=== PATIENT | female | born 1925 | race Caucasian/White ===

== ENCOUNTER 2016-06-17 14:06 | Emergency (ER) | payer OTHER ==
[~2016-06-17] VITALS: Ht 144.8 cm; Wt 52.0 kg
[~2016-06-17 14:06] MED LIST: DILT240C80 PO; ISOS30TA5 PO; LABE300T PO
[2016-06-17 14:30] VITALS: Ht 144.8 cm; Wt 52.0 kg
[2016-06-17] MEDS ORDERED: IBUPROFEN 200 MG TAB PO ONE (16:30)
[2016-06-17] MEDS ORDERED: AZIT250T94 PO (16:59)
--- NOTE | 2016-06-17 16:59 | ERD ---
ER Documentation Chief Complaint Date/Time DATE: 06/17/16 TIME: 16:56 Chief Complaint cough & sinclair x 1 week, no fever at home HPI This is a 89-year-old female presents to the emergency room for evaluation of a cough, and nasal congestion. This patient states that she has been taking Phenergan with dextromethorphan at home with a mild relief of her cough. She states that she is coughing up yellow phlegm. Daughter is giving history and denies any fevers at home. The patient was brought in for further evaluation. ROS All systems reviewed and are negative except as per history of present illness. Medications Home Meds Reported Medications Diltiazem Hcl* (Tiazac) 240 Mg Capsule.sa, 240 MG PO BID, CAP 08/12/14 Labetalol Hcl* (Labetalol Hcl*) 300 Mg Tablet, 300 MG PO DAILY, TAB 08/12/14 Isosorbide Mononitrate* (Isosorbide Mononitrate*) 30 Mg Tab.er.24h, 30 MG PO DAILY, TAB 08/12/14 Allergies Allergies: Coded Allergies: No Known Allergy (Unverified , 08/12/14) PMhx/Soc History of Surgery: Yes (CHOLECYSTECTOMY) Anesthesia Reaction: No Hx Neurological Disorder: No Hx Respiratory Disorders: No Hx Cardiac Disorders: Yes (HTN) Hx Psychiatric Problems: No Hx Miscellaneous Medical Probl: No Hx Alcohol Use: No Hx Substance Use: No Hx Tobacco Use: No Smoking Status: Never smoker Physical Exam Vitals Vital Signs Date Time Temp Pulse Resp B/P Pulse Ox O2 Delivery O2 Flow Rate FiO2 06/17/16 14:30 100.0 95 20 196/66 95 Physical Exam Const: No acute distress Eyes: Normal Conjunctiva ENT: Normal External Ears, Nose and Mouth. Neck: Full range of motion..~ No meningismus. Resp: Clear to auscultation bilaterally Cardio: Regular rate and rhythm, no murmurs Abd: Soft, non tender, non distended. Normal bowel sounds Skin: No petechiae or rashes Back: No midline or flank tenderness Ext: No cyanosis, or edema Neur: Awake and alert Psych: Normal Mood and Affect Results 24 hrs Current Medications Medications (Trade) Dose Ordered Sig/Joselito Route PRN Reason Start Time Stop Time Status Last Admin Dose Admin Ibuprofen (Motrin) 400 mg ONCE ONCE PO 06/17/16 16:30 1/21/17 16:31 DC 06/17/16 16:29 Azithromycin (Zithromax) 500 mg ONCE ONCE PO 06/17/16 17:00 06/17/16 17:01 Procedures/MDM Chest X-ray 1V Interpreted by me: Soft Tissue: Pulmonary vascular congestion with possible early right middle lobe infiltrate Bones: No acute abnormalities Mediastinum/Cardiac Silhouette/Lungs: [No acute abnormalities] This 89-year-old female presents to the emergency room for evaluation of a cough , and congestion. This patient had temperature 100F in the emergency room, x- ray was obtained which does show possible right early middle lobe infiltrate. The patient was given 500 mg of azithromycin p.o. She is not hypoxic, she sitting in bed comfortably, no acute distress. She will be discharged home with a prescription for azithromycin, and Robitussin-DM. I advised the patient' s daughter to give the patient Robitussin-DM at night to help her sleep however she needs to cough to help remove mucous plugging from her respiratory system. Patient was advised to return immediately to the emergency room if the patient were to develop fever, worsening cough or if the patient was not improving on antibiotics in both the patient and the patient's daughter verbalized understanding. Departure Diagnosis: Primary Impression: Cough Condition: LISANDRO Powell DO Jun 17, 2016 16:59
[2016-06-17] MEDS ORDERED: AZITHROMYCIN 250 MG TAB PO ONE (17:00)
[2016-06-17] MEDS ORDERED: UDROBDM PO (17:01)
--- NOTE | 2016-06-17 17:39 | RADRPT ---
PROCEDURE: XR Chest. CLINICAL INDICATION: Cough and fever. TECHNIQUE: Single frontal chest x-ray. COMPARISON: None available. FINDINGS: There are atherosclerotic changes of the aorta. The cardiomediastinal silhouette is enlarged. The lungs are clear without focal consolidation, effusion, or pneumothorax. There are no acute osseous abnormalities. IMPRESSION: 1. Cardiomegaly. No focal consolidation. 2. Vascular calcifications consistent with atherosclerosis. RPTAT: GG .Leonardo Hall MD, MD Date Time Electronically viewed and signed by .Leonardo Hall MD, on 06/17/2016 17:39 .P/
== END 2016-06-17 17:15 | disposition home or self-care (01) ==
LOC: E/R 14:06
DX: R05 Cough (principal); I10 Essential (primary) hypertension; R40.2142 Coma scale, eyes open, spontaneous, at arrival to emergency department; R40.2252 Coma scale, best verbal response, oriented, at arrival to emergency department; R40.2362 Coma scale, best motor response, obeys commands, at arrival to emergency department
CPT/HCPCS: 71010; Z7502; Z7610

== ENCOUNTER 2016-09-21 17:31 | Inpatient (IN) | payer OTHER ==
[~2016-09-21] VITALS: Ht 149.9 cm; Wt 56.2 kg
[~2016-09-21 17:31] MED LIST changes: +AZIT250T94 PO; +UDROBDM PO
[2016-09-21 21:00] VITALS: BP 153/85; PULSE 56; RESP 18; Ht 149.9 cm; Wt 56.2 kg
[2016-09-21 21:17] VITALS: PULSE 59
[2016-09-21] MEDS ORDERED: LEVO50TA74 PO (22:07)
[2016-09-21] MEDS ORDERED: PANT40TA4 PO (22:07)
[2016-09-21] MEDS ORDERED: ACET-141 PO (22:07)
[2016-09-21] MEDS ORDERED: ASPI81TA3 PO (22:07)
[2016-09-21] MEDS ORDERED: ALBUTEROL/IPRATROPIUM (NEB) 3 ML AMP HHN PRN (23:30)
[2016-09-21] MEDS ORDERED: NACL 0.9% 3 ML SYG IV SCH (23:30)
[2016-09-21] MEDS ORDERED: ONDANSETRON 4 MG INJ IV PRN (23:30)
[2016-09-21] MEDS ORDERED: hydrALAzine 20 MG INJ IV PRN (23:30)
[2016-09-21] MEDS ORDERED: NITROGLYCERIN (SL) 0.4 MG TAB SL PRN (23:30)
[2016-09-21] MEDS ORDERED: LORAZEPAM 2 MG INJ IV PRN (23:30)
[2016-09-21 23:39] VITALS: BP 153/66; RESP 18
[2016-09-21 23:40] VITALS: BP 150/68; RESP 18
[2016-09-22] VITALS (13 sets, daily range): BP systolic 116–196; BP diastolic 57–80; PULSE 55–155; RESP 18–19
[2016-09-22] MEDS: morphine 2 MG INJ IV PRN (00:49)
[2016-09-22 01:08] LABS: ADD SCAN DIFF NO
[2016-09-22 01:11] LABS: BASOPHIL # 0.1 10^3/ul (0.0-0.1); BASOPHILS % 0.7 % (0.0-2.0); EOSINOPHILS # 0.5 10^3/ul (0.0-0.5); EOSINOPHILS % 4.9 % (0.0-7.0); HEMATOCRIT 33.7 % (37.0-47.0); HEMOGLOBIN 10.8 g/dl (12.0-16.0); LYMPHOCYTES # 1.5 10^3/ul (0.8-2.9); MEAN CORPUSCULAR HEMOGLOBIN 27.2 pg (29.0-33.0); MEAN CORPUSCULAR VOLUME 84.9 fl (82.0-101.0); MEAN PLATELET VOLUME 9.6 fl (7.4-10.4); MONOCYTE # 0.8 10^3/ul (0.3-0.9); MONOCYTES % 7.7 % (0.0-11.0); NEUTROPHIL # 7.4 10^3/ul (1.6-7.5); NEUTROPHILS % 71.3 % (39.0-77.0); PLATELET COUNT 345 10^3/UL (140-415); RED BLOOD COUNT 3.97 10^6/ul (4.20-5.40); RED CELL DISTRIBUTION WIDTH 14.8 % (11.5-14.5); WHITE BLOOD COUNT 10.3 10^3/ul (4.8-10.8)
[2016-09-22 01:34] LABS: ALBUMIN 3.3 g/dl (3.3-4.9); ALBUMIN/GLOBULIN RATIO 1.13; CALCIUM 8.8 mg/dl (8.4-10.2); CHOL/HDL RATIO 3.6 RATIO; CREATININE 1.45 mg/dl (0.44-1.00); MAGNESIUM 2.2 mg/dl (1.7-2.5); POTASSIUM 4.6 mmol/L (3.5-5.1); TOTAL PROTEIN 6.2 g/dl (6.1-8.1)
[2016-09-22 02:15] LABS: THYROID STIMULATING HORMONE 2.63 MIU/L (0.465-4.680)
[2016-09-22] MEDS: PANTOPRAZOLE (EC) 40 MG TAB PO SCH (05:09)
[2016-09-22] MEDS: LEVOTHYROXINE 50 MCG TAB PO SCH (06:45)
[2016-09-22] MEDS: ACETAMINOPHEN 325 MG TAB PO PRN (07:29)
[2016-09-22] MEDS: ASPIRIN 81 MG TAB PO SCH (08:14)
[2016-09-22] MEDS: ISOSORBIDE MONONITRATE(SR)30 MG TAB PO SCH (08:15)
[2016-09-22] MEDS: DILTIAZEM (CD) 240 MG CAP PO SCH ×2 (08:15→21:43)
--- NOTE | 2016-09-22 09:06 | HP ---
Date/Time of Note Date/Time of Note DATE: 09/22/16 TIME: 08:58 Assessment/Plan VTE Prophylaxis VTE Prophylaxis Intervention: SCD's Lines/Catheters IV Catheter Type (from Nrs): Peripheral IV Urinary Cath still in place: No Assessment/Plan Assessment/Plan IMPRESSION 1. Headache, likely 2/2 severely elevated BP 2. Hypertensive Urgency: per vitals from outside hospital: BP better controlled here 3. Hx of Hypothyroidism 4. CKD PLAN Her headache is likely from severely elevated BP. Will obtain Head CT. Pain meds as needed Resume home meds with adjustment as needed Avoid nephrotoxins. As compared to labs from 2014, kidney function is slightly better HPI/ROS Admit Date/Time Admit Date/Time Sep 21, 2016 at 20:29 Hx of Present Illness This is an 89 yo female with hx of HTN, hypothyroidism and CKD who initially presented to outside hospital c/o headache. She was transferred to [facility] because of insurance reasons. Pain is localized in occipital area. denied neck stiffness , fever, blurry vision, N/V, chest pain or SOB. Blood pressure at outside hospital was > 200/100. I spoke to her through a nurse satellite dish technician and pt said her BP at home is usually in 200 range. She said she takes "2 medications". PMH/Family/Social Past Medical History Medical History: hypertension, hyperthyroid Social History Alcohol Use: none Smoking Status: Never smoker Drug Use: none Exam/Review of Systems Vital Signs Vitals Vital Signs Date Time Temp Pulse Resp B/P Pulse Ox O2 Delivery O2 Flow Rate FiO2 09/22/16 08:41 57 09/22/16 08:16 145/67 09/22/16 07:18 98.0 18 95 09/21/16 21:00 Room Air Intake and Output 09/21/16 09/21/16 09/22/16 15:00 23:00 07:00 Intake Total 550 ml Balance 550 ml Exam Constitutional: alert, well developed Head: atraumatic, normocephalic, other (tenderness in occiptal area. no palpable mass or deformity) Eyes: EOMI, PERRL Respiratory: clear to auscultation, normal air movement Cardiovascular: nl pulses, regular rate and rhythm Gastrointestinal: non-tender, soft Extremities: normal pulses Labs Result Diagram: 09/22/16 0043 09/22/16 0043 Medications Medications Current Medications Lorazepam (Ativan) 0.5 mg Q6H PRN IV ANXIETY; Start 09/21/16 at 23:30 Ondansetron HCl (Zofran Inj) 4 mg Q6H PRN IV NAUSEA AND/OR VOMITING; Start at 23:30 Aspirin (Aspirin) 81 mg DAILY PO Last administered on 09/22/16 08:14; Admin Dose 81 MG; Start 09/22/16 at 09:00 Nitroglycerin (Nitroglycerin (Sl Tab) 0.4 Mg) 1 tab Q5M PRN SL CHEST PAIN; Start 09/21/16 at 23:30 Acetaminophen (Tylenol Tab) 650 mg Q6H PRN PO PAIN LEVEL 1-3 OR FEVER Last administered on 09/22/16 07:29; Admin Dose 650 MG; Start 09/21/16 at 23:30 Morphine Sulfate (morphine) 2 mg Q4H PRN IV PAIN LEVEL 7-10 Last administered on 09/22/16 00:49; Admin Dose 2 MG; Start 09/21/16 at 23:30 Hydralazine HCl (Apresoline) 10 mg Q4H PRN IV SBP > 160 Last administered on 07:29; Admin Dose 10 MG; Start 09/21/16 at 23:30 Diltiazem HCl (Cardizem Cd) 240 mg BID PO Last administered on 09/22/16 08:15 ; Admin Dose 240 MG; Start 09/22/16 at 09:00 Isosorbide Mononitrate (Imdur) 30 mg DAILY PO Last administered on 09/22/16 08 :15; Admin Dose 30 MG; Start 09/22/16 at 09:00 Pantoprazole (Protonix Tab) 40 mg DAILY@06 PO Last administered on 09/22/16 05 :09; Admin Dose 40 MG; Start 09/22/16 at 06:00 JYOTSNA MARY MD Sep 22, 2016 09:06
[2016-09-22] MEDS: LISINOPRIL 10 MG TAB PO SCH (10:23)
[2016-09-22] MEDS ORDERED: KETOROLAC 15 MG INJ IV STA (11:08)
--- NOTE | 2016-09-22 11:22 | PN ---
Date/Time of Note Date/Time of Note DATE: 09/22/16 TIME: 10:55 Assessment/Plan VTE Prophylaxis VTE Prophylaxis Intervention: ambulation, other (awaiting CT head read prior to anticoagulation) Lines/Catheters IV Catheter Type (from Nrs): Peripheral IV Urinary Cath still in place: No Assessment/Plan Chief Complaint/Hosp Course 1. Headache, likely 2/2 severely elevated BP - Her headache is likely from severely elevated BP. Will obtain CT head and neck without contrast. Tylenol and morphine did not help with pain. Will give her one time dose of Toradol 15mg IV right now. Further pain management after CT results. 2. Hypertensive Urgency: per vitals from outside hospital: BP better controlled here. On cardizem from home will continue this med as she has been on it for some time according to her, will add Lisinopril 10mg, Hydralazine 25mg PO prn. Will titrate JR as needed. 3. Hx of Hypothyroidism 4. CKD - no renal bruits appreciated. Added JR. 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 It has been there for a few days. Not releaved with tylenol. Exam/Review of Systems Vital Signs Vitals Vital Signs Date Time Temp Pulse Resp B/P Pulse Ox O2 Delivery O2 Flow Rate FiO2 09/22/16 08:41 57 09/22/16 08:16 145/67 09/22/16 07:18 98.0 18 95 09/21/16 21:00 Room Air Intake and Output 09/21/16 09/21/16 09/22/16 15:00 23:00 07:00 Intake Total 550 ml Balance 550 ml Exam Constitutional: alert, well developed Head: atraumatic, normocephalic, other (tenderness to palpation in occiptal area and right posteror neck no palpable mass or deformity) Eyes: EOMI, PERRL Respiratory: clear to auscultation, normal air movement Cardiovascular: nl pulses, regular rate and rhythm Gastrointestinal: non-tender, soft Extremities: normal pulses : No renal bruits appreciated on auscultation Results Result Diagram: 09/22/16 0043 09/22/16 0043 Results 24 hrs Laboratory Tests Test 09/22/16 00:43 White Blood Count 10.3 Red Blood Count 3.97 L Hemoglobin 10.8 L Hematocrit 33.7 L Mean Corpuscular Volume 84.9 Mean Corpuscular Hemoglobin 27.2 L Mean Corpuscular Hemoglobin Concent 32.0 Red Cell Distribution Width 14.8 H Platelet Count 345 Mean Platelet Volume 9.6 Neutrophils % 71.3 Lymphocytes % 15.0 Monocytes % 7.7 Eosinophils % 4.9 Basophils % 0.7 Nucleated Red Blood Cells % 0.0 Neutrophils # 7.4 Lymphocytes # 1.5 Monocytes # 0.8 Eosinophils # 0.5 Basophils # 0.1 Nucleated Red Blood Cells # 0.0 Sodium Level 135 Potassium Level 4.6 Chloride Level 106 Carbon Dioxide Level 25 Anion Gap 9 Blood Urea Nitrogen 38 H Creatinine 1.45 H Glucose Level 103 Calcium Level 8.8 Magnesium Level 2.2 Total Bilirubin 0.0 L Direct Bilirubin 0.00 Indirect Bilirubin 0.0 Aspartate Amino Transf (AST/SGOT) 20 Alanine Aminotransferase (ALT/SGPT) 21 Alkaline Phosphatase 104 Total Protein 6.2 Albumin 3.3 Globulin 2.90 Albumin/Globulin Ratio 1.13 Triglycerides Level 132 Cholesterol Level 126 LDL Cholesterol, Calculated 65 HDL Cholesterol 35 Cholesterol/HDL Ratio 3.6 Thyroid Stimulating Hormone (TSH) 2.630 Medications Medications Current Medications Lorazepam (Ativan) 0.5 mg Q6H PRN IV ANXIETY; Start 09/21/16 at 23:30 Ondansetron HCl (Zofran Inj) 4 mg Q6H PRN IV NAUSEA AND/OR VOMITING; Start at 23:30 Aspirin (Aspirin) 81 mg DAILY PO Last administered on 09/22/16 08:14; Admin Dose 81 MG; Start 09/22/16 at 09:00 Nitroglycerin (Nitroglycerin (Sl Tab) 0.4 Mg) 1 tab Q5M PRN SL CHEST PAIN; Start 09/21/16 at 23:30 Acetaminophen (Tylenol Tab) 650 mg Q6H PRN PO PAIN LEVEL 1-3 OR FEVER Last administered on 09/22/16 07:29; Admin Dose 650 MG; Start 09/21/16 at 23:30 Morphine Sulfate (morphine) 2 mg Q4H PRN IV PAIN LEVEL 7-10 Last administered on 09/22/16 00:49; Admin Dose 2 MG; Start 09/21/16 at 23:30 Diltiazem HCl (Cardizem Cd) 240 mg BID PO Last administered on 09/22/16 08:15 ; Admin Dose 240 MG; Start 09/22/16 at 09:00 Isosorbide Mononitrate (Imdur) 30 mg DAILY PO Last administered on 09/22/16 08 :15; Admin Dose 30 MG; Start 09/22/16 at 09:00 Pantoprazole (Protonix Tab) 40 mg DAILY@06 PO Last administered on 09/22/16 05 :09; Admin Dose 40 MG; Start 09/22/16 at 06:00 Lisinopril (Zestril) 10 mg DAILY PO Last administered on 09/22/16 10:23; Admin Dose 10 MG; Start 09/22/16 at 10:00 Hydralazine HCl (Apresoline) 25 mg Q6H PRN PO for bp above 160/100; Start 09/22 at 10:30 ROHITH ABURTO Sep 22, 2016 11:05
--- NOTE | 2016-09-22 16:49 | RADRPT ---
PROCEDURE: CT Head without contrast. CLINICAL INDICATION: Headaches. Hypertensive urgency TECHNIQUE: The study was performed utilizing a GE 64-slice multidetector CT scanner. Direct spiral axial CT images of the brain were obtained from the vertex to the skull base without contrast. Marielos nal and sagittal reformatted images are provided. The CTDI vol is 43.77 mGy and the DLP is 630.2 mGy -cm. The images were reviewed on a PACS workstation. COMPARISON: No prior studies are available for comparison. FINDINGS: Mild diffuse atrophy is seen with a compensatory ventricular enlargement. Mild white matter disease in the periventricular and deep white matter is seen. A chronic lacunar infarct in the right cauda te head is seen measuring 4 mm in size. The elder-white matter differentiation is maintained. No in tra or extra-axial fluid collection or mass effect or shift in the midline structures is seen. The visualized paranasal sinuses, mastoid air cells, orbits, and calvarium are unremarkable. Vascular ca lcifications are seen. IMPRESSION: 1. No acute intracranial pathology. 2. Mild diffuse volume loss and mild chronic microvascular ischemic changes. 3. 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 RPTAT: HPNM Physician Tana Date Time Electronically viewed and signed by Physician Tana on 09/22/2016 16:48 /
--- NOTE | 2016-09-22 16:56 | RADRPT ---
PROCEDURE: CT cervical spine without contrast. CLINICAL INDICATION: Nontraumatic right sided neck pain TECHNIQUE: CT of the cervical spine without contrast was performed. Axial images were obtained th rough the cervical spine and reformatted at 1.25 mm slice thickness. Coronal and sagittal images wer e reformatted. Exam CTDIvol = 22.04 mGy and DLP = 371.66 mGy-cm. COMPARISON: None available. FINDINGS: Vertebral bodies: Reversal of the normal cervical lordosis is demonstrated on the sagittal images. Anterolisthesis of C3 relative to C4 is estimated at 4 mm, C4 relative to C5 of approximately 2 mm a nd anterolisthesis of C7 relative to T1 approximately 2 mm. There is marked decrease of mineralizat ion and trabeculation. No lytic or blastic lesions are present. Degenerative narrowing of the prede ntal space is present. There is moderate to severe degenerative narrowing between the lateral mass of C1 on the left and the C2 vertebral body Central canal and cervical spinal cord: No abnormal density within the spinal cord is evident and no intraspinal masses are delineated. C2-3: The disk is within normal limits. Severe right and moderate left facet arthropathy is present . The uncovertebral joints and foramina are unremarkable. C3-4: Mild degenerative disk narrowing is noted without disk protrusion or significant central sten osis. Severe bilateral facet arthropathy is present slightly greater on the right. Uncovertebral hy pertrophy also contribute to mild bilateral foraminal stenosis. C4-5: Moderate degenerative disk narrowing is present with anterolisthesis and no large disk protru michelle or central stenosis. Severe left and moderate facet arthropathy is present. Uncovertebral hype rtrophy also seen contribute to moderate to severe left and mild right foraminal stenosis. C5-6: Moderate degenerative disk narrowing with a small osteophyte and disk complex contributing to no more than mild central stenosis. Mild bilateral facet arthropathy is seen. Uncovertebral hypert rophy causes moderate left and mild right foraminal stenosis. C6-7: Severe degenerative disk narrowing with a small osteophyte and disk complex not causing sign ificant central stenosis. Moderate left and mild right facet arthropathy is present. Uncovertebral hypertrophy causes moderate to severe left and mild right foraminal stenosis. C7-T1: Mild degenerative disk narrowing without disk protrusion or central stenosis. Moderate facet arthropathy on the right is noted. The uncovertebral joints and foramina are unremarkable. Visualized thoracic spine: Severe degenerative disk narrowing at T1-2 and T2-3 is present with unco vertebral hypertrophy contributing to left greater than right T1-2 foraminal stenosis. There is no significant central canal narrowing at these levels Non spine related findings: Extensive atherosclerotic calcification of the aorta and carotid bifurca tions is identified RPTAT:HJJR IMPRESSION: 1. Reversal of the normal cervical lordosis may be from positioning but cannot exclude muscle spasm . 2. Asymmetric degenerative narrowing at the C 1-2 on the left side. 3. Degenerative disk narrowing greatest at C4-5, C5-6 and C6-7 with osteophyte and disk complex is contributing to at most mild C5-6 foraminal stenosis. 4. Significant right-sided facet arthropathy at C2-3 and C3-4 with left-sided facet arthropathy mos t pronounced at C4-5. 5. Mild right foraminal stenosis from uncovertebral hypertrophy and facet degeneration is present a nd C3-4, C4-5, C5-6 and C6-7. 6. Foraminal stenosis is greatest on the left at the C4-5 and C6-7. 7. Degenerative anterolisthesis at C3-4, C4-5 and C7-T1. 8. Generalized demineralization unable to exclude osteoporosis. 9. Atherosclerotic calcification of the aorta and carotid bifurcations. Physician Leena Date Time Electronically viewed and signed by Physician Leena on 09/22/2016 16:56 JR/
[2016-09-22] MEDS: KETOROLAC 15 MG INJ IV SCH (21:43)
[2016-09-23] VITALS (12 sets, daily range): BP systolic 124–198; BP diastolic 54–81; PULSE 59–75; RESP 18
[2016-09-23] MEDS: KETOROLAC 15 MG INJ IV SCH ×3 (02:00→13:56)
[2016-09-23] MEDS: LEVOTHYROXINE 50 MCG TAB PO SCH (06:30)
[2016-09-23] MEDS: ACETAMINOPHEN 325 MG TAB PO PRN ×3 (06:30→19:52)
[2016-09-23] MEDS: PANTOPRAZOLE (EC) 40 MG TAB PO SCH (06:30)
--- NOTE | 2016-09-23 07:32 | PN ---
Date/Time of Note Date/Time of Note DATE: 09/23/16 TIME: : Assessment/Plan VTE Prophylaxis VTE Prophylaxis Intervention: LMWH Lines/Catheters IV [facility]from [facility] Saline Lock Urinary Cath still in place: No Assessment/Plan Problems: (1) Hypertension, uncontrolled Status: Chronic Comment: Patient cannot recall who her primary doctor is or what her medications are. She was given an JR inhibitor yesterday we will check her renal function now. Section appropriate choice and I would consider using that in combination with a beta-greg and possibly an alpha greg to control her. (2) Acquired hypothyroidism Status: Chronic Comment: Maintain replacement therapy (3) Chronic kidney disease, stage II (mild) Status: Chronic Comment: We do not have a baseline on her so we will have to keep a careful eye on this (4) Cervical spine arthritis Status: Chronic Comment: Muscle relaxants and Moses 2 selective drugs Subjective 24 Hr Interval Summary Free Text/Dictation Patient complains of posterior neck pain at the nuchal ridge area. She denies any other symptoms Constitutional: no complaints (Denies fevers chills or sweats) Eyes: no complaints ENT: no complaints Respiratory: no complaints Cardiovascular: no complaints (Denies chest pain palpitations orthopnea PND) Gastrointestinal: no complaints Genitourinary: no complaints Neurologic: no complaints Exam/Review of Systems Vital Signs Vitals Vital Signs Date Time Temp Pulse Resp B/P Pulse Ox O2 Delivery O2 Flow Rate FiO2 09/23/16 07:11 98.0 62 18 186/76 96 09/23/16 04:00 Room Air Exam Constitutional: alert, oriented Eyes: EOMI, PERRL, nl conjunctiva, nl lids, nl sclera Neck: other (Marked tenderness and muscular spasm at the right [place]-vertebral nuchal ridge area), supple Respiratory: clear to auscultation, normal air movement Cardiovascular: nl pulses, regular rate and rhythm Gastrointestinal: nl liver, spleen, non-tender, soft Results Result Diagram: 09/22/16 0043 09/22/16 0043 Medications Medications Current Medications Lorazepam (Ativan) 0.5 mg Q6H PRN IV ANXIETY; Start 09/21/16 at 23:30 Ondansetron HCl (Zofran Inj) 4 mg Q6H PRN IV NAUSEA AND/OR VOMITING; Start at 23:30 Aspirin (Aspirin) 81 mg DAILY PO Last administered on 09/22/16 08:14; Admin Dose 81 MG; Start 09/22/16 at 09:00 Nitroglycerin (Nitroglycerin (Sl Tab) 0.4 Mg) 1 tab Q5M PRN SL CHEST PAIN; Start 09/21/16 at 23:30 Acetaminophen (Tylenol Tab) 650 mg Q6H PRN PO PAIN LEVEL 1-3 OR FEVER Last administered on 09/23/16 06:30; Admin Dose 650 MG; Start 09/21/16 at 23:30 Morphine Sulfate (morphine) 2 mg Q4H PRN IV PAIN LEVEL 7-10 Last administered on 09/22/16 00:49; Admin Dose 2 MG; Start 09/21/16 at 23:30 Diltiazem HCl (Cardizem Cd) 240 mg BID PO Last administered on 09/22/16 21:43 ; Admin Dose 240 MG; Start 09/22/16 at 09:00 Isosorbide Mononitrate (Imdur) 30 mg DAILY PO Last administered on 09/22/16 08 :15; Admin Dose 30 MG; Start 09/22/16 at 09:00 Pantoprazole (Protonix Tab) 40 mg DAILY@06 PO Last administered on 09/23/16 06 :30; Admin Dose 40 MG; Start 09/22/16 at 06:00 Lisinopril (Zestril) 10 mg DAILY PO Last administered on 09/22/16 10:23; Admin Dose 10 MG; Start 09/22/16 at 10:00 Hydralazine HCl (Apresoline) 25 mg Q6H PRN PO for bp above 160/100; Start 09/22 at 10:30 Ketorolac Tromethamine (Toradol) 15 mg Q6H IV Last administered on 09/22/16 21 :43; Admin Dose 15 MG; Start 09/22/16 at 20:00; Stop 09/23/16 at 14:00 CHRISTINA REICH MD Sep 23, 2016 07:32
[2016-09-23] MEDS: ISOSORBIDE MONONITRATE(SR)30 MG TAB PO SCH (08:10)
[2016-09-23] MEDS: ASPIRIN 81 MG TAB PO SCH (08:10)
[2016-09-23] MEDS: METOPROLOL (XL) 25 MG TAB PO SCH ×2 (08:11→20:25)
[2016-09-23] MEDS: LISINOPRIL 10 MG TAB PO SCH (08:11)
[2016-09-23 11:16] LABS: ANION GAP 11 (8-16); BLOOD UREA NITROGEN 50 mg/dl (7-20); CALCIUM 8.8 mg/dl (8.4-10.2); CARBON DIOXIDE 23 mmol/L (21-31); CHLORIDE 105 mmol/L (97-110); CREATININE 1.78 mg/dl (0.44-1.00); GLUCOSE 146 mg/dl (70-220); POTASSIUM 4.5 mmol/L (3.5-5.1); SODIUM 134 mmol/L (135-144)
[2016-09-23] MEDS: DILTIAZEM (CD) 120 MG CAP PO SCH (20:24)
[2016-09-24] VITALS (15 sets, daily range): BP systolic 140–213; BP diastolic 64–86; PULSE 62–80; RESP 18–20
[2016-09-24] MEDS: hydrALAzine 20 MG INJ IV PRN ×3 (00:33→23:54)
[2016-09-24] MEDS: morphine 2 MG INJ IV PRN ×2 (01:26→09:00)
[2016-09-24] MEDS: PANTOPRAZOLE (EC) 40 MG TAB PO SCH (06:14)
[2016-09-24] MEDS: LEVOTHYROXINE 50 MCG TAB PO SCH (06:14)
--- NOTE | 2016-09-24 06:55 | PN ---
Date/Time of Note Date/Time of Note DATE: 09/24/16 TIME: 06:52 Assessment/Plan VTE Prophylaxis VTE Prophylaxis Intervention: SCD's Lines/Catheters [facility]from [facility] Saline Lock Urinary Cath still in place: No Assessment/Plan Problems: (1) Hypertension, uncontrolled Status: Chronic Comment: This is coming under control. Please note she had a mild rise in creatinine. However this has the overall appearance of being prerenal. Will continue working with her but we may need to switch her off of the marleni/A2 receptor [facility]. For now we will give her fluid bolus recheck her in the morning. Please note she is improving to the point where his this could be done as an outpatient (2) Acquired hypothyroidism Status: Chronic Comment: Stable on replacement therapy (3) Chronic kidney disease, stage II (mild) Status: Chronic Comment: As noted above this has the appearance of being prerenal. I will give her a fluid bolus with LR 500 cc and recheck her (4) Cervical spine arthritis Status: Chronic Comment: She is responding to physical therapy and muscle relaxants Subjective 24 Hr Interval Summary Free Text/Dictation Patient reports that while she is still having significant neck pain which is her chief complaint, it is a little bit better. Constitutional: no complaints (No fevers chills or sweats) Respiratory: no complaints Cardiovascular: no complaints Gastrointestinal: no complaints Genitourinary: no complaints Musculoskeletal: neck pain Exam/Review of Systems Vital Signs Vitals Vital Signs Date Time Temp Pulse Resp B/P Pulse Ox O2 Delivery O2 Flow Rate FiO2 09/24/16 04:27 66 09/24/16 04:00 98.1 18 147/65 97 09/24/16 01:07 Room Air Intake and Output 09/23/16 09/23/16 09/24/16 15:00 23:00 07:00 Intake Total 400 ml 850 ml 450 ml Balance 400 ml 850 ml 450 ml Exam Constitutional: alert, oriented Neck: non-tender, supple Respiratory: clear to auscultation, normal air movement Cardiovascular: nl pulses, regular rate and rhythm Results Result Diagram: 09/22/16 0043 09/23/16 1012 Results 24 hrs Laboratory Tests Test 09/23/16 10:12 Sodium Level 134 L Potassium Level 4.5 Chloride Level 105 Carbon Dioxide Level 23 Anion Gap 11 Blood Urea Nitrogen 50 H Creatinine 1.78 H Glucose Level 146 # Calcium Level 8.8 Hepatitis C Antibody NEGATIVE Medications Medications Current Medications Lorazepam (Ativan) 0.5 mg Q6H PRN IV ANXIETY; Start 09/21/16 at 23:30 Ondansetron HCl (Zofran Inj) 4 mg Q6H PRN IV NAUSEA AND/OR VOMITING; Start at 23:30 Aspirin (Aspirin) 81 mg DAILY PO Last administered on 09/23/16 08:10; Admin Dose 81 MG; Start 09/22/16 at 09:00 Nitroglycerin (Nitroglycerin (Sl Tab) 0.4 Mg) 1 tab Q5M PRN SL CHEST PAIN; Start 09/21/16 at 23:30 Acetaminophen (Tylenol Tab) 650 mg Q6H PRN PO PAIN LEVEL 1-3 OR FEVER Last administered on 09/23/16 19:52; Admin Dose 650 MG; Start 09/21/16 at 23:30 Morphine Sulfate (morphine) 2 mg Q4H PRN IV PAIN LEVEL 7-10 Last administered on 09/24/16 01:26; Admin Dose 2 MG; Start 09/21/16 at 23:30 Isosorbide Mononitrate (Imdur) 30 mg DAILY PO Last administered on 09/23/16 08 :10; Admin Dose 30 MG; Start 09/22/16 at 09:00 Pantoprazole (Protonix Tab) 40 mg DAILY@06 PO Last administered on 09/24/16 06 :14; Admin Dose 40 MG; Start 09/22/16 at 06:00 Lisinopril (Zestril) 10 mg DAILY PO Last administered on 09/23/16 08:11; Admin Dose 10 MG; Start 09/22/16 at 10:00 Hydralazine HCl (Apresoline) 25 mg Q6H PRN PO for bp above 160/100 Last administered on 09/23/16 19:53; Admin Dose 25 MG; Start 09/22/16 at 10:30 Diltiazem HCl (Cardizem Cd) 120 mg QHS PO Last administered on 09/23/16 20:24 ; Admin Dose 120 MG; Start 09/23/16 at 21:00 Metoprolol Succinate (Toprol Xl) 25 mg BID PO Last administered on 09/23/16 20 :25; Admin Dose 25 MG; Start 09/23/16 at 09:00 Hydralazine HCl (Apresoline) 50 mg TID PO ; Start 09/24/16 at 09:00 Hydralazine HCl 10 mg 10 mg Q4H PRN IV ELEVATED BLOOD PRESSURE Last administered on 09/24/16 00:33; Admin Dose 10 MG; Start 09/23/16 at 22:00 Lactated Ringer's (Lr) 500 ml @ 500 mls/hr Q1H ONCE IV ; Start 09/24/16 at 07: 00; Stop 09/24/16 at 07:59; Status CHRISTINA OAKLEY MD Sep 24, 2016 06:54
[2016-09-24] MEDS ORDERED: LACTATED RINGER'S 500 ML IV ONE (07:00)
[2016-09-24 07:10] LABS: ALBUMIN 3.4 g/dl (3.3-4.9)
[2016-09-24 07:11] LABS: POTASSIUM 4.1 mmol/L (3.5-5.1)
[2016-09-24 07:13] LABS: ALBUMIN/GLOBULIN RATIO 1.06; BILIRUBIN,INDIRECT 0.3 mg/dl (0-1.1); BILIRUBIN,TOTAL 0.3 mg/dl (0.2-1.3); CREATININE 1.61 mg/dl (0.44-1.00); TOTAL PROTEIN 6.6 g/dl (6.1-8.1)
[2016-09-24] MEDS: ISOSORBIDE MONONITRATE(SR)30 MG TAB PO SCH (08:55)
[2016-09-24] MEDS: LISINOPRIL 10 MG TAB PO SCH (08:55)
[2016-09-24] MEDS: ASPIRIN 81 MG TAB PO SCH (08:55)
[2016-09-24] MEDS: METOPROLOL (XL) 25 MG TAB PO SCH ×2 (08:55→20:26)
[2016-09-24] MEDS: DILTIAZEM (CD) 120 MG CAP PO SCH (20:26)
[2016-09-25] VITALS (14 sets, daily range): BP systolic 148–189; BP diastolic 66–96; PULSE 64–85; RESP 18–20
[2016-09-25] MEDS: PANTOPRAZOLE (EC) 40 MG TAB PO SCH (06:12)
[2016-09-25] MEDS: LEVOTHYROXINE 50 MCG TAB PO SCH (06:12)
[2016-09-25 07:03] LABS: POTASSIUM 3.9 mmol/L (3.5-5.1)
[2016-09-25 07:06] LABS: CREATININE 1.63 mg/dl (0.44-1.00)
[2016-09-25 07:07] LABS: CALCIUM 8.8 mg/dl (8.4-10.2)
[2016-09-25] MEDS: METOPROLOL (XL) 25 MG TAB PO SCH (08:44)
[2016-09-25] MEDS: LISINOPRIL 10 MG TAB PO SCH ×2 (08:44→20:39)
[2016-09-25] MEDS: ASPIRIN 81 MG TAB PO SCH (08:44)
[2016-09-25] MEDS: ISOSORBIDE MONONITRATE(SR)30 MG TAB PO SCH (08:44)
[2016-09-25] MEDS: morphine 2 MG INJ IV PRN (12:56)
--- NOTE | 2016-09-25 13:56 | CONS ---
DATE OF ADMISSION: 09/21/2016 DATE OF CONSULTATION: 09/25/2016 REASON FOR CONSULTATION: Acute kidney injury, hyponatremia, difficult to control hypertension. HISTORY OF PRESENT ILLNESS: This is an 89-year-old female who has a past medical history of hyperte nsion, hypothyroidism, history of cholecystectomy. The patient presented with hypertension which wa s very uncontrolled. She also has a history of chronic kidney disease which is stage II secondary t o hypertensive nephrosclerosis. At the time of my evaluation, she is hemodynamically stable, but he r blood pressure has been still running high in the systolics 170s to 180s. She denies any chest pa in, palpitation, headache, dizziness, blurry vision, constipation, diarrhea, dysuria, increased urin corina frequency. REVIEW OF SYSTEMS: As per HPI. PAST MEDICAL HISTORY: Notable for hypertension, hypothyroidism, history of chronic kidney disease. PAST SURGICAL HISTORY: Not available. SOCIAL HISTORY: No alcohol use, never smoked, no recreational drug use. FAMILY HISTORY: Positive for hypertension and hypothyroidism in the family. PHYSICAL EXAMINATION: VITAL SIGNS: Temperature 98.2, heart rate 69, respiration 20, blood pressure 179/96, saturation is 94% to 96% on room air. GENERAL: Awake, alert, in no distress. HEENT: Normal. Oropharynx clear. NECK: Supple, no JVD, no lymphadenopathy. LUNGS: Clear to auscultation. No crackles, no wheezes. HEART: S1, S2, with regular rhythm, no murmur. ABDOMEN: Soft, nontender, nondistended. Bowel sounds are present. EXTREMITIES: No clubbing, cyanosis, or edema. NEUROLOGICAL: Nonfocal, intact. PSYCHIATRIC: Appropriate affect and mood. LABORATORY DATA AND DIAGNOSTIC IMAGING 1. WBC 10.3, hemoglobin 10.8, platelet count 345. Sodium 134, potassium 4.5, chloride 105, bicarbo karen 23, BUN 50, creatinine 1.7, glucose 146, calcium 8.8. 2. CT brain without contrast negative for any acute findings. 3. CT cervical C-spine shows degenerative disk disease with foraminal stenosis. IMPRESSION: This is an 89-year-old female with: 1. Acute kidney injury on chronic kidney disease stage II secondary to uncontrolled hypertension an d prerenal azotemia. 2. 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 3. Hypertensive urgency/accelerated hypertension. 4. History of hypertension. 5. History of hypothyroidism. PLAN: Thank you, Dr. Sosa, for this consultation. 1. I will start the patient on lisinopril 10 mg p.o. daily for better blood pressure control. Cont inue the Toprol-XL 75 mg p.o. b.i.d. and I will also add Cardizem. The patient is on a 120 mg p.o. at bedtime for blood pressure control. 2. I will order the renal ultrasound for further workup of chronic kidney disease. If the patient needs better blood pressure control, the plan is to increase the lisinopril to 10 mg p.o. b.i.d. 3. At the time of my evaluation, she is hemodynamically stable. I will follow the patient along wi th the primary care service. Total time spent in this patient evaluation including making assessment and plan, communicating with the patient and communicating with the nursing staff took more than 90 minutes. Dictated By: MARCO JEONG MD, KP/ANGELLA Conf#: [id number] DID#: [id number]
--- NOTE | 2016-09-25 14:35 | RADRPT ---
PROCEDURE: Retroperitoneal US. CLINICAL INDICATION: Renal insufficiency TECHNIQUE: Multiple sonographic images of the kidneys and retroperitoneum were obtained. The imag es were reviewed on a PACS workstation. COMPARISON: No prior studies are available for comparison. FINDINGS: The kidneys are normal in contour, cortical thickness and cortical echogenicity. The right kidney measures 7.8 cm. The left kidney measures 8.8 cm. No kidney stones are visualized. There is no evidence for hydronephrosis. The urinary bladder is normal. RPTAT: AA IMPRESSION: Small kidneys with no evidence of hydronephrosis. .Hiram Acosta MD, Date Time Electronically viewed and signed by .Hiram Acosta MD, MD on 09/25/2016 14:34 .S/
--- NOTE | 2016-09-25 17:12 | PN ---
Date/Time of Note Date/Time of Note DATE: 09/25/16 TIME: 17:02 Assessment/Plan VTE Prophylaxis VTE Prophylaxis Intervention: SCD's Lines/Catheters [facility] Saline Lock Urinary Cath still in place: No Assessment/Plan Assessment/Plan his is an 89-year-old female with: 1. Acute kidney injury on chronic kidney disease stage II secondary to uncontrolled hypertension and prerenal azotemia. 2. 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 3. Hypertensive urgency/accelerated hypertension. 4. History of hypertension. 5. hypothyroidism. PLAN: * titrate antihypertensives for better control * appreciate nephrology inpuit * 2D echo * supportive care * PT eval and recs noted, discuss with family and case mgt Subjective 24 Hr Interval Summary Free Text/Dictation Patient seen and examined. Nursing reports no acute overnight events. Exam/Review of Systems Vital Signs Vitals Vital Signs Date Time Temp Pulse Resp B/P Pulse Ox O2 Delivery O2 Flow Rate FiO2 09/25/16 16:12 98.6 66 20 189/79 96 09/25/16 02:42 Room Air Intake and Output 09/24/16 09/24/16 09/25/16 14:59 22:59 06:59 Intake Total 500 ml 500 ml Balance 500 ml 500 ml Exam GENERAL: Awake, alert, in no distress. HEENT: Normal. Oropharynx clear. NECK: Supple, no JVD, no lymphadenopathy. LUNGS: Clear to auscultation. No crackles, no wheezes. HEART: S1, S2, with regular rhythm, no murmur. ABDOMEN: Soft, nontender, nondistended. Bowel sounds are present. EXTREMITIES: No clubbing, cyanosis, or edema. NEUROLOGICAL: Nonfocal, intact. PSYCHIATRIC: Appropriate affect and mood. Results Result Diagram: 09/22/16 0043 09/25/16 0620 Results 24 hrs Laboratory Tests Test 09/25/16 06:20 Sodium Level 138 Potassium Level 3.9 Chloride Level 103 Carbon Dioxide Level 24 Anion Gap 15 Blood Urea Nitrogen 43 H Creatinine 1.63 H Glucose Level 95 Calcium Level 8.8 Medications Medications Current Medications Lorazepam (Ativan) 0.5 mg Q6H PRN IV ANXIETY; Start 09/21/16 at 23:30 Ondansetron HCl (Zofran Inj) 4 mg Q6H PRN IV NAUSEA AND/OR VOMITING; Start at 23:30 Aspirin (Aspirin) 81 mg DAILY PO Last administered on 09/25/16 08:44; Admin Dose 81 MG; Start 09/22/16 at 09:00 Nitroglycerin (Nitroglycerin (Sl Tab) 0.4 Mg) 1 tab Q5M PRN SL CHEST PAIN; Start 09/21/16 at 23:30 Acetaminophen (Tylenol Tab) 650 mg Q6H PRN PO PAIN LEVEL 1-3 OR FEVER Last administered on 09/23/16 19:52; Admin Dose 650 MG; Start 09/21/16 at 23:30 Morphine Sulfate (morphine) 2 mg Q4H PRN IV PAIN LEVEL 7-10 Last administered on 09/25/16 12:56; Admin Dose 2 MG; Start 09/21/16 at 23:30 Isosorbide Mononitrate (Imdur) 30 mg DAILY PO Last administered on 09/25/16 08: 44; Admin Dose 30 MG; Start 09/22/16 at 09:00 Pantoprazole (Protonix Tab) 40 mg DAILY@06 PO Last administered on 09/25/16 06: 12; Admin Dose 40 MG; Start 09/22/16 at 06:00 Hydralazine HCl (Apresoline) 25 mg Q6H PRN PO for bp above 160/100 Last administered on 09/23/16 19:53; Admin Dose 25 MG; Start 09/22/16 at 10:30 Diltiazem HCl (Cardizem Cd) 120 mg QHS PO Last administered on 09/24/16 20:26 ; Admin Dose 120 MG; Start 09/23/16 at 21:00 Metoprolol Succinate (Toprol Xl) 25 mg BID PO Last administered on 09/25/16 08: 44; Admin Dose 25 MG; Start 09/23/16 at 09:00 Hydralazine HCl (Apresoline) 50 mg TID PO Last administered on 09/25/16 12:56; Admin Dose 50 MG; Start 09/24/16 at 09:00 Hydralazine HCl (Apresoline) 10 mg Q4H PRN IV ELEVATED BLOOD PRESSURE Last administered on 09/24/16 23:54; Admin Dose 10 MG; Start 09/23/16 at 22:00 Lisinopril (Zestril) 10 mg BID PO ; Start 09/25/16 at 21:00 Procedures Procedures PT Evaluation A 89 y/o female pt admitted due to [place] due to severely elevated BP. PLOF pt lives with family in an apt. He was independent with gait using SPC, needs some assist with self care and ADL's. No steps/ stairs at home. Short distance ambulator, daughter is the primary support at home. Hx of htn, CKD, she was transferred from [facility] due to insurance. S:denies pain O:PT eval completed, see grid for details, seen up in bed with nursing, with no apparent distress, verbal cues for safety. Swiss speaking. min a with sit to stand, constant verbal cues for safety and sequencing. instructed with pacing and PLB. sgait training using fww, reciprocal gait, narrow ALEJANDRA, dec dewige, inc trunk lean. assisted back to chair, nursing may assist pt back to bed, A"high fall risk, recommend SNF for continuation of treatment v HHPT with 24/ 7caregiver and fww, dec endurance, dec strength, generalized weakness and fatigues easil, fair rehab potential. P:Once daily/5x/week for bed mobility, transfer, gait, therex, balance, family/ caregiver training for LOS. cont poc. HILL SAEZ September 25, 2016 17:12
[2016-09-25] MEDS: hydrALAzine 20 MG INJ IV PRN (17:19)
[2016-09-25] MEDS: METOPROLOL 50 MG TAB PO SCH (20:39)
[2016-09-26] VITALS (12 sets, daily range): BP systolic 146–180; BP diastolic 62–77; PULSE 64–75; RESP 18–20
[2016-09-26] MEDS: hydrALAzine 20 MG INJ IV PRN (03:27)
[2016-09-26] MEDS: morphine 2 MG INJ IV PRN (03:29)
[2016-09-26] MEDS: PANTOPRAZOLE (EC) 40 MG TAB PO SCH (06:06)
[2016-09-26] MEDS: LEVOTHYROXINE 50 MCG TAB PO SCH (07:37)
[2016-09-26] MEDS: ASPIRIN 81 MG TAB PO SCH (09:29)
[2016-09-26] MEDS: LISINOPRIL 10 MG TAB PO SCH ×2 (09:30→21:00)
[2016-09-26] MEDS: ISOSORBIDE MONONITRATE(SR)30 MG TAB PO SCH (09:30)
[2016-09-26] MEDS: METOPROLOL 50 MG TAB PO SCH ×2 (09:30→21:00)
--- NOTE | 2016-09-26 12:31 | CONS ---
Date/Time of Note Date/Time of Note DATE: 09/26/16 TIME: 12:25 Assessment/Plan Assessment/Plan Additional Assessment/Plan 1. Acute kidney injury on chronic kidney disease stage II secondary to uncontrolled hypertension and prerenal azotemia. 2. 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 3. Hypertensive urgency/accelerated hypertension. 4. History of hypertension. 5. History of hypothyroidism. Plan: pt has a recurretn SVT d/c cardizem start MTP 50 mg pO BID- increase to 75 mg pO Bid hydralazine for better bP control Renal US c/w medical renal disease Consultation Date/Type/Reason Admit Date/Time Sep 21, 2016 at 20:29 Initial Consult Date September Type of Consultation: NEPHROLOGY Reason for Consultation acute kidney injury, Hypertensive urgency Referring Provider: HILL SAEZ 24 HR Interval Summary Free Text/Dictation Cr 1.63,BP now better controlled , had a 6 beats of SVT Exam/Review of Systems Vital Signs Vitals Vital Signs Date Time Temp Pulse Resp B/P Pulse Ox O2 Delivery O2 Flow Rate FiO2 09/26/16 12:14 66 09/26/16 11:35 98.2 20 166/69 96 09/25/16 02:42 Room Air Intake and Output 09/25/16 09/25/16 09/26/16 15:00 23:00 07:00 Intake Total 900 ml 200 ml Balance 900 ml 200 ml Exam GENERAL: Awake, alert, in no distress. HEENT: Normal. Oropharynx clear. NECK: Supple, no JVD, no lymphadenopathy. LUNGS: Clear to auscultation. No crackles, no wheezes. HEART: S1, S2, with regular rhythm, no murmur. ABDOMEN: Soft, nontender, nondistended. Bowel sounds are present. EXTREMITIES: No clubbing, cyanosis, or edema. NEUROLOGICAL: Nonfocal, intact. PSYCHIATRIC: Appropriate affect and mood. Results Result Diagram: 09/22/16 0043 09/25/16 0620 Medications Medications Current Medications Lorazepam (Ativan) 0.5 mg Q6H PRN IV ANXIETY; Start 09/21/16 at 23:30 Ondansetron HCl (Zofran Inj) 4 mg Q6H PRN IV NAUSEA AND/OR VOMITING; Start at 23:30 Aspirin (Aspirin) 81 mg DAILY PO Last administered on 09/26/16 09:29; Admin Dose 81 MG; Start 09/22/16 at 09:00 Nitroglycerin (Nitroglycerin (Sl Tab) 0.4 Mg) 1 tab Q5M PRN SL CHEST PAIN; Start 09/21/16 at 23:30 Acetaminophen (Tylenol Tab) 650 mg Q6H PRN PO PAIN LEVEL 1-3 OR FEVER Last administered on 09/23/16 19:52; Admin Dose 650 MG; Start 09/21/16 at 23:30 Morphine Sulfate (morphine) 2 mg Q4H PRN IV PAIN LEVEL 7-10 Last administered on 09/26/16 03:29; Admin Dose 2 MG; Start 09/21/16 at 23:30 Isosorbide Mononitrate (Imdur) 30 mg DAILY PO Last administered on 09/26/16 09: 30; Admin Dose 30 MG; Start 09/22/16 at 09:00 Pantoprazole (Protonix Tab) 40 mg DAILY@06 PO Last administered on 09/26/16 06: 06; Admin Dose 40 MG; Start 09/22/16 at 06:00 Hydralazine HCl (Apresoline) 10 mg Q4H PRN IV ELEVATED BLOOD PRESSURE Last administered on 09/26/16 03:27; Admin Dose 10 MG; Start 09/23/16 at 22:00 Lisinopril (Zestril) 10 mg BID PO Last administered on 09/26/16 09:30; Admin Dose 10 MG; Start 09/25/16 at 21:00 Metoprolol Tartrate (Lopressor) 50 mg BID PO Last administered on 09/26/16 09: 30; Admin Dose 50 MG; Start 09/25/16 at 21:00 MARCO JEONG MD September 26, 2016 12:31
--- NOTE | 2016-09-26 14:31 | PN ---
Date/Time of Note Date/Time of Note DATE: 09/26/16 TIME: 14:27 Assessment/Plan VTE Prophylaxis VTE Prophylaxis Intervention: SCD's Lines/Catheters [facility] Saline Lock Urinary Cath still in place: No Assessment/Plan Assessment/Plan This is an 89-year-old female with: 1. Acute kidney injury on chronic kidney disease stage II secondary to uncontrolled hypertension and prerenal azotemia. 2. 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 3. Accelerated hypertension: improved 4. History of hypertension. 5. hypothyroidism. 6. Non sustained SVTs 7. Cervical Msc spasm PLAN: * Agree with increasing dose of BB * Cardiology consult / f/u 2D echo / Msc relaxant therapy * Will get UA, assess Mag and phos levels * supportive care * PT eval and recs noted, discuss with family and case mgt Subjective 24 Hr Interval Summary Free Text/Dictation c/o neck pain, reproducible by palpation SVTs to 180s last night Exam/Review of Systems Vital Signs Vitals Vital Signs Date Time Temp Pulse Resp B/P Pulse Ox O2 Delivery O2 Flow Rate FiO2 09/26/16 12:14 66 09/26/16 11:35 98.2 20 166/69 96 09/25/16 02:42 Room Air Intake and Output 09/25/16 09/25/16 09/26/16 14:59 22:59 06:59 Intake Total 900 ml 200 ml Balance 900 ml 200 ml Exam GENERAL: Elderly frail Awake, alert, in no distress. HEENT: Normal. Oropharynx clear. NECK: Supple, no JVD, no lymphadenopathy. LUNGS: Clear to auscultation. No crackles, no wheezes. HEART: S1, S2, with regular rhythm, no murmur. ABDOMEN: Soft, nontender, nondistended. Bowel sounds are present. EXTREMITIES: No clubbing, cyanosis, or edema. NEUROLOGICAL: Nonfocal, intact. PSYCHIATRIC: Appropriate affect and mood. Results Result Diagram: 09/22/16 0043 09/25/16 0620 Medications Medications Current Medications Lorazepam (Ativan) 0.5 mg Q6H PRN IV ANXIETY; Start 09/21/16 at 23:30 Ondansetron HCl (Zofran Inj) 4 mg Q6H PRN IV NAUSEA AND/OR VOMITING; Start at 23:30 Aspirin (Aspirin) 81 mg DAILY PO Last administered on 09/26/16 09:29; Admin Dose 81 MG; Start 09/22/16 at 09:00 Nitroglycerin (Nitroglycerin (Sl Tab) 0.4 Mg) 1 tab Q5M PRN SL CHEST PAIN; Start 09/21/16 at 23:30 Acetaminophen (Tylenol Tab) 650 mg Q6H PRN PO PAIN LEVEL 1-3 OR FEVER Last administered on 09/23/16 19:52; Admin Dose 650 MG; Start 09/21/16 at 23:30 Morphine Sulfate (morphine) 2 mg Q4H PRN IV PAIN LEVEL 7-10 Last administered on 09/26/16 03:29; Admin Dose 2 MG; Start 09/21/16 at 23:30 Isosorbide Mononitrate (Imdur) 30 mg DAILY PO Last administered on 09/26/16 09: 30; Admin Dose 30 MG; Start 09/22/16 at 09:00 Pantoprazole (Protonix Tab) 40 mg DAILY@06 PO Last administered on 09/26/16 06: 06; Admin Dose 40 MG; Start 09/22/16 at 06:00 Hydralazine HCl (Apresoline) 10 mg Q4H PRN IV ELEVATED BLOOD PRESSURE Last administered on 09/26/16 03:27; Admin Dose 10 MG; Start 09/23/16 at 22:00 Lisinopril (Zestril) 10 mg BID PO Last administered on 09/26/16 09:30; Admin Dose 10 MG; Start 09/25/16 at 21:00 Metoprolol Tartrate (Lopressor) 75 mg BID PO ; Start 09/26/16 at 21:00 Cyclobenzaprine HCl (Flexeril) 5 mg TID PO ; Start 09/26/16 at 21:00; Stop at 20:59; Status HILL HADLEY September 26, 2016 14:31
--- NOTE | 2016-09-26 14:37 | RADRPT ---
Echocardiogram Report Patient Name: JOSE SHAW Gender: Female Date: 1925 Study Date: 26-Sep-2016 Upsetter Setter Up: Leroy Alcantara [facility] Location: [id number] Ref. Physician: HILL SAEZ Quality: Good Procedures: Transthoracic echocardiogram with complete 2D, M-Mode, and doppler examination. Indications: Hypertension. 2D/M Mode Doppler Measurement Value Normal Ranges Measurement Value Normal Ranges LVIDd 2D 3.8 3.5 - 5.6 cm CASSIE Vmax 1.5 cm2 LVIDs 2D 2.0 2.1 - 4.1 cm CASSIE VTI 1.5 cm2 LVPWd 2D 1.3 0.6 - 1.1 cm AV Mean Yassine 1.2 m/sec IVSd 2D 1.4 0.6 - 1.1 cm AV Mean PG 8.0 mmHg AoR Diam 2D 2.8 2.0 - 3.7 cm AV Peak Yassine 2.3 m/sec EDV 2D 62.2 cm3 AV Peak PG 0.0 mmHg ESV 2D 8.5 cm3 AV VTI 45.2 cm LA Dimen 2D 3.3 2.3 - 4.0 cm AI Peak PG 57.8 mmHg LVOT Diam 2.0 cm AI Peak Yassine 3.8 m/sec AI PHT 796.9 msec LVOT Mean Yassine 0.8 m/sec LVOT Mean PG 2.7 mmHg LVOT Peak Yassine 1.2 m/sec LVOT Peak PG 5.3 mmHg LVOT VTI 24.7 cm MV E Peak Yassine 0.8 m/sec MV A Peak Yassine 1.3 m/sec MV E/A 0.6 MV Decel Time 330 msec MV Decel Crook 2 MV E/A 0.6 TR Peak Yassine 2.6 m/sec TR Peak PG 27.0 mmHg RVSP 30.0 mmHg Findings Left Ventricle: Normal left ventricular systolic function. Normal left ventricular cavity size. Moderate concentric left ventricular hypertrophy. Ejection fraction is visually estimated at 65 %. Tissue Doppler/Mitral Doppler indices are consistent with impaired relaxation (Stage I diastolic dysfunction). Right Ventricle: Normal right ventricular size. Normal right ventricular systolic function. Left Atrium: The left atrium is normal in size. Right Atrium: The right atrium is normal in size. Mitral Valve: Mitral valve leaflets appear mildly thickened. Mild mitral annular calcification. Trace mitral regurgitation. Aortic Valve: Aortic valve Max velocity 2.28 m/sec. Max PG 20.80 mmHg. Mean PG 8.00 mmHg. Aortic valve area 1.70 cm2. Aortic sclerosis without stenosis. Mild to moderate aortic valve regurgitation. Tricuspid Valve: Normal appearance of the tricuspid valve. Estimated peak PA systolic pressure 30 mmHg. There is mild tricuspid regurgitation. Pulmonic Valve: Pulmonic valve not well visualized. There is mild pulmonic regurgitation. Pericardium: Normal pericardium with no significant pericardial effusion. Aorta: Normal aortic root. IVC: Normal size and normal respiratory collapse consistent with normal right atrial pressure. Conclusions 1.Normal left ventricular systolic function. Normal left ventricular cavity size. Moderate concentric left ventricular hypertrophy. Ejection fraction is visually estimated at 65 %. Tissue Doppler/Mitral Doppler indices are consistent with impaired relaxation (Stage I diastolic dysfunction). 2.Aortic valve Max velocity 2.28 m/sec. Max PG 20.80 mmHg. Mean PG 8.00 mmHg. Aortic valve area 1.70 cm2. Aortic sclerosis without stenosis. Mild to moderate aortic valve regurgitation. 3.Mitral valve leaflets appear mildly thickened. Mild mitral annular calcification. Trace mitral regurgitation. 4.Normal appearance of the tricuspid valve. Estimated peak PA systolic pressure 30 mmHg. There is mild tricuspid regurgitation. Electronically Signed By: Robe Goldman 26-Sep-2016 14:37:01 -0700 Patient Name: JOSE SHAW Study Date: 26-Sep-2016 [id number]
--- NOTE | 2016-09-26 16:15 | CONS ---
DATE OF ADMISSION: 09/21/2016 DATE OF CONSULTATION: 09/26/2016 TYPE OF CONSULTATION: Cardiology. REFERRING PHYSICIAN: Rafael Stafford MD REASON FOR EVALUATION: Tachycardia. HISTORY OF PRESENT ILLNESS: Ms. Neumann is an 89-year-old woman, mostly Irish speaking, with a histo ry of hypertension, dyslipidemia, history of chronic renal disease, hypertensive disease and renal d isease who comes to the hospital now for evaluation of acute renal failure. I have been asked to se e the patient in consultation because of episodes of nonsustained VT. She has supraventricular tach ycardia, likely atrial fibrillation tachycardia going for about 20 beats. The patient does not repor t any chest pain or any prior cardiac history. The patient already had a 2D echo while here in the hospital which showed preserved ejection fraction with aortic sclerosis and valve area of 1.7 cm2, a s well as mild to moderate aortic regurgitation. The patient does not report any chest pain at this point. I think for now, conservative therapy is expected. I will see if the patient can tolerate a small dose of beta greg. Other than that, we will continue to follow and optimize as needed. PAST MEDICAL HISTORY: 1. Hypertension. 2. Dyslipidemia. 3. History of coronary artery disease. 4. History were aortic sclerosis without any significant stenosis. ALLERGIES: NO KNOWN DRUG ALLERGIES. SOCIAL HISTORY: The patient does not smoke, does not drink, does not use any drugs. FAMILY HISTORY: Negative for sudden cardiac or premature coronary artery disease. MEDICATIONS: 1. Here include metoprolol 65 mg b.i.d. 2. Hydralazine 8 mg daily. 3. Simvastatin b.i.d. 4. Aspirin 81 once a day. 5. Isosorbide mononitrate 30 mg. 6. Levothyroxine. 7. Pantoprazole. 8. Lorazepam. 9. Albuterol as needed. REVIEW OF SYSTEMS: CONSTITUTIONAL: No fevers, no chills, no palpitations. EKG reviewed. CARDIAC: No chest pain reported now. RESPIRATORY: Shortness of breath. GASTROINTESTINAL: No nausea, vomiting, diarrhea, constipation. GENITOURINARY: No dysuria, hematuria. NEUROLOGIC: No focal neurologic deficits. HEMATOLOGIC: Negative. PHYSICAL EXAMINATION: VITAL SIGNS: Temperature is 97.8, heart rate 66, blood pressure 136/69. GENERAL: She is a well-nourished woman in no acute distress, alert and oriented x3. Speaks in [place]. HEAD: Normocephalic, atraumatic. Eyes anicteric. NECK: Supple. JVD 6-7 cm. There is no lymphadenopathy or thyromegaly. HEART: Regular with occasional irregularities. PMI is nondisplaced. I do not hear an S3. LUNGS: Coarse at bases. ABDOMEN: Distended, bowel sounds are present. There is no hepatosplenomegaly. EXTREMITIES: No clubbing, cyanosis, or edema. LABORATORY DATA: ECG reviewed by me shows sinus rhythm at the rate of [address]-T changes. The patient does have an episode of SVT, likely atrial tachycardia on the monitor, interm ittent and recurrent yesterday. LABORATORY DATA: White blood cells 10.3, hemoglobin is 10.8, platelets 345. His INR is 1.0. Sodiu m 130, potassium 3.9, creatinine is 1.36. Magnesium level is 2.2. Troponin is negative at 0.01. ASSESSMENT AND PLAN: 1. Supraventricular tachycardia, likely atrial tachycardia, possibly provoked with albuterol. For now, conservative treatment. Suspect the patient has a good size of beta greg. No intervention is planned unless the patient is not stable. I think it is probably better to avoid antiarrhythmic medications in this elderly patient as long as she is not symptomatic and episodes are not long. 2. Hypertension. Blood pressure is still on the high side. Continue to adjust therapy with renal team. 3. Acute renal failure. Creatinine stable at 1.67. Dr. Quintanilla follows. 4. Chest pain. The patient did not rule in for ischemia. Troponins are negative. 5. Premature atrial contractions, no treatment is required. I would like to thank Dr. Sosa for referring this patient for my evaluation. Dictated By: DAVY UGARTE MD ML/NTS Conf#: [id number] DID#: [id number]
[2016-09-26 16:43] LABS: PHOSPHORUS 4.6 mg/dl (2.5-4.9)
[2016-09-26 17:16] LABS: ADD UMIC YES; URINE BILIRUBIN (Dip) NEGATIVE (NEGATIVE); URINE BLOOD (Dip) NEGATIVE (NEGATIVE); URINE COLOR LT. YELLOW (YELLOW); URINE GLUCOSE (Dip) NEGATIVE (NEGATIVE); URINE KETONES (Dip) NEGATIVE (NEGATIVE); URINE LEUKOCYTE ESTERASE (Dip) 2+ (NEGATIVE); URINE NITRITE (Dip) NEGATIVE (NEGATIVE); URINE TOTAL PROTEIN (Dip) 2+ (NEGATIVE); URINE UROBILINOGEN (Dip) 0.2 E.U./dL (0.1-1.0)
[2016-09-26 17:25] LABS: BACTERIA,URINE MANY; SQUAMOUS EPITHELIAL CELL,UR FEW; URINE RBCS 0-2 /HPF (0)
[2016-09-26] MEDS: CYCLOBENZAPRINE 10 MG TAB PO SCH (20:59)
[2016-09-27] VITALS (13 sets, daily range): BP systolic 155–197; BP diastolic 63–84; PULSE 60–72; RESP 16–18
[2016-09-27] MEDS: PANTOPRAZOLE (EC) 40 MG TAB PO SCH (06:37)
[2016-09-27] MEDS: LEVOTHYROXINE 50 MCG TAB PO SCH (06:37)
[2016-09-27] MEDS: ASPIRIN 81 MG TAB PO SCH (08:00)
[2016-09-27] MEDS: ISOSORBIDE MONONITRATE(SR)30 MG TAB PO SCH (08:01)
[2016-09-27] MEDS: LISINOPRIL 10 MG TAB PO SCH ×2 (08:01→21:45)
[2016-09-27] MEDS: METOPROLOL 50 MG TAB PO SCH ×2 (08:09→21:45)
[2016-09-27] MEDS: CYCLOBENZAPRINE 10 MG TAB PO SCH ×2 (08:09→12:11)
[2016-09-27] MEDS ORDERED: NIFEdipine (XL) 30 MG TAB PO SCH (12:00)
[2016-09-27] MEDS ORDERED: NIFEdipine (XL) 60 MG TAB PO ONE ×2 (12:00)
--- NOTE | 2016-09-27 15:18 | CONS ---
Date/Time of Note Date/Time of Note DATE: 09/27/16 TIME: 15:17 Assessment/Plan Assessment/Plan Additional Assessment/Plan 1. Acute kidney injury on chronic kidney disease stage II secondary to uncontrolled hypertension and prerenal azotemia. 2. 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 3. Hypertensive urgency/accelerated hypertension. 4. History of hypertension. 5. History of hypothyroidism. Plan: pt has a recurretn SVT- MTP incrased to 75 BID on Hydralazine, still BP high, will add procardia XL 30mg po daily Renal US c/w medical renal disease Cr around 1.63 will follow up Consultation Date/Type/Reason Admit Date/Time Sep 21, 2016 at 20:29 Initial Consult Date September Type of Consultation: NEPHROLOGY Referring Provider: HILL SAEZ 24 HR Interval Summary Free Text/Dictation BP has been still runnigh high despite being on MTP and hydralazine Exam/Review of Systems Vital Signs Vitals Vital Signs Date Time Temp Pulse Resp B/P Pulse Ox O2 Delivery O2 Flow Rate FiO2 09/27/16 12:28 61 09/27/16 11:04 98.2 16 157/70 94 09/25/16 02:42 Room Air Intake and Output 09/26/16 09/26/16 09/27/16 15:00 23:00 07:00 Intake Total 150 ml Balance 150 ml Exam GENERAL: Awake, alert, in no distress. HEENT: Normal. Oropharynx clear. NECK: Supple, no JVD, no lymphadenopathy. LUNGS: Clear to auscultation. No crackles, no wheezes. HEART: S1, S2, with regular rhythm, no murmur. ABDOMEN: Soft, nontender, nondistended. Bowel sounds are present. EXTREMITIES: No clubbing, cyanosis, or edema. NEUROLOGICAL: Nonfocal, intact. PSYCHIATRIC: Appropriate affect and mood. Results Result Diagram: 09/25/16 0620 Results 24 hrs Laboratory Tests Test 09/26/16 16:10 Phosphorus Level 4.6 Magnesium Level 2.0 Medications Medications Current Medications Lorazepam (Ativan) 0.5 mg Q6H PRN IV ANXIETY; Start 09/21/16 at 23:30 Ondansetron HCl (Zofran Inj) 4 mg Q6H PRN IV NAUSEA AND/OR VOMITING; Start at 23:30 Aspirin (Aspirin) 81 mg DAILY PO Last administered on 09/27/16 08:00; Admin Dose 81 MG; Start 09/22/16 at 09:00 Nitroglycerin (Nitroglycerin (Sl Tab) 0.4 Mg) 1 tab Q5M PRN SL CHEST PAIN; Start 09/21/16 at 23:30 Acetaminophen (Tylenol Tab) 650 mg Q6H PRN PO PAIN LEVEL 1-3 OR FEVER Last administered on 09/23/16 19:52; Admin Dose 650 MG; Start 09/21/16 at 23:30 Morphine Sulfate (morphine) 2 mg Q4H PRN IV PAIN LEVEL 7-10 Last administered on 09/26/16 03:29; Admin Dose 2 MG; Start 09/21/16 at 23:30 Isosorbide Mononitrate (Imdur) 30 mg DAILY PO Last administered on 09/27/16 08: 01; Admin Dose 30 MG; Start 09/22/16 at 09:00 Pantoprazole (Protonix Tab) 40 mg DAILY@06 PO Last administered on 09/27/16 06: 37; Admin Dose 40 MG; Start 09/22/16 at 06:00 Hydralazine HCl (Apresoline) 10 mg Q4H PRN IV ELEVATED BLOOD PRESSURE Last administered on 09/26/16 03:27; Admin Dose 10 MG; Start 09/23/16 at 22:00 Lisinopril (Zestril) 10 mg BID PO Last administered on 09/27/16 08:01; Admin Dose 10 MG; Start 09/25/16 at 21:00 Metoprolol Tartrate (Lopressor) 75 mg BID PO Last administered on 09/27/16 08: 09; Admin Dose 75 MG; Start 09/26/16 at 21:00 Cyclobenzaprine HCl (Flexeril) 5 mg TID PO Last administered on 09/27/16 12:11 ; Admin Dose 5 MG; Start 09/26/16 at 21:00; Stop 09/27/16 at 20:59 Nifedipine (Procardia Xl) 30 mg DAILY PO ; Start 09/28/16 at 09:00 MARCO JEONG MD September 27, 2016 15:18
--- NOTE | 2016-09-27 17:55 | PN ---
Date/Time of Note Date/Time of Note DATE: 09/27/16 TIME: 17:49 Assessment/Plan VTE Prophylaxis VTE Prophylaxis Intervention: SCD's Lines/Catheters IV Catheter Type (from [facility]): Saline Lock Urinary Cath still in place: No Assessment/Plan Assessment/Plan This is an 89-year-old female with: 1. Acute kidney injury on chronic kidney disease stage II secondary to uncontrolled hypertension and prerenal azotemia. 2. 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 3. Accelerated hypertension: improved 4. History of hypertension. 5. hypothyroidism. 6. Non sustained SVTs 7. Cervical Msc spasm 8. UTI PLAN: * Start abx for UTI, send urine for culture * Need shart term rehab, ARU versus SNF, Case mgt to start working on placement * Monitor BP and titrate meds for improved control. * supportive care * PT eval and recs noted, discuss with family and case mgt Exam/Review of Systems Vital Signs Vitals Vital Signs Date Time Temp Pulse Resp B/P Pulse Ox O2 Delivery O2 Flow Rate FiO2 09/27/16 16:41 72 09/27/16 15:24 97.9 155/63 96 09/27/16 11:04 16 09/25/16 02:42 Room Air Intake and Output 09/26/16 09/26/16 09/27/16 15:00 23:00 07:00 Intake Total 150 ml Balance 150 ml Exam GENERAL: Patient is alert, oriented x 3, in no apparent distress; frail elderly lady, is conversant, interactive, coherent. Patient appears calm and comfortable and is able to follow commands. HEENT: Oropharynx is clear. There is no carotid bruit, no masses. Patient's pupils are equal, round and reactive to light bilaterally. Extraocular motions are intact. There is no scleral icterus. There is no facial asymmetry. NECK: Supple. LUNGS: Clear to auscultation bilaterally with good air entry. No Wheezes or crackles. HEART: S1, S2. No murmur, gallops or rubs. Regular rate and rhythm. ABDOMEN: Soft, nontender. Normoactive bowel sounds. There are no stigmata of chronic liver disease. BACK: no costovertebral angle tenderness. GENITOURINARY: Deferred. EXTREMITIES: No edema. There is no cyanosis, clubbing. There are 2+ pulses bilaterally distally. NEUROLOGIC: The patient has no lateralizing signs, Lethargic SKIN: Otherwise, unremarkable. Results Result Diagram: 09/25/16 0620 Medications Medications Current Medications Lorazepam (Ativan) 0.5 mg Q6H PRN IV ANXIETY; Start 09/21/16 at 23:30 Ondansetron HCl (Zofran Inj) 4 mg Q6H PRN IV NAUSEA AND/OR VOMITING; Start at 23:30 Aspirin (Aspirin) 81 mg DAILY PO Last administered on 09/27/16 08:00; Admin Dose 81 MG; Start 09/22/16 at 09:00 Nitroglycerin (Nitroglycerin (Sl Tab) 0.4 Mg) 1 tab Q5M PRN SL CHEST PAIN; Start 09/21/16 at 23:30 Acetaminophen (Tylenol Tab) 650 mg Q6H PRN PO PAIN LEVEL 1-3 OR FEVER Last administered on 09/23/16 19:52; Admin Dose 650 MG; Start 09/21/16 at 23:30 Morphine Sulfate (morphine) 2 mg Q4H PRN IV PAIN LEVEL 7-10 Last administered on 09/26/16 03:29; Admin Dose 2 MG; Start 09/21/16 at 23:30 Isosorbide Mononitrate (Imdur) 30 mg DAILY PO Last administered on 09/27/16 08: 01; Admin Dose 30 MG; Start 09/22/16 at 09:00 Pantoprazole (Protonix Tab) 40 mg DAILY@06 PO Last administered on 09/27/16 06: 37; Admin Dose 40 MG; Start 09/22/16 at 06:00 Hydralazine HCl (Apresoline) 10 mg Q4H PRN IV ELEVATED BLOOD PRESSURE Last administered on 09/26/16 03:27; Admin Dose 10 MG; Start 09/23/16 at 22:00 Lisinopril (Zestril) 10 mg BID PO Last administered on 09/27/16 08:01; Admin Dose 10 MG; Start 09/25/16 at 21:00 Metoprolol Tartrate (Lopressor) 75 mg BID PO Last administered on 09/27/16 08: 09; Admin Dose 75 MG; Start 09/26/16 at 21:00 Cyclobenzaprine HCl (Flexeril) 5 mg TID PO Last administered on 09/27/16t 12:11 ; Admin Dose 5 MG; Start 09/26/16 at 21:00; Stop 09/27/16 at 20:59 Nifedipine (Procardia Xl) 30 mg DAILY PO ; Start 09/28/16 at 09:00 Procedures Procedures PROCEDURE: Retroperitoneal US. CLINICAL INDICATION: Renal insufficiency TECHNIQUE: Multiple sonographic images of the kidneys and retroperitoneum were obtained. The images were reviewed on a PACS workstation. COMPARISON: No prior studies are available for comparison. FINDINGS: The kidneys are normal in contour, cortical thickness and cortical echogenicity. The right kidney measures 7.8 cm. The left kidney measures 8.8 cm. No kidney stones are visualized. There is no evidence for hydronephrosis. The urinary bladder is normal. RPTAT: AA IMPRESSION: Small kidneys with no evidence of hydronephrosis. .Hiram Acosta MD, MD Date Time Electronically viewed and signed by .Hiram Acosta MD, MD on 09/25/2016 14: 34 .S/ CC: MARCO JEONG MD, BOLATITO M. September 27, 2016 17:54
[2016-09-27] MEDS: CEFTRIAXONE 1 GM/50 ML (PMX) 50 ML IVPB SCH (18:26)
--- NOTE | 2016-09-27 19:00 | CONS ---
Date/Time of Note Date/Time of Note DATE: 09/27/16 TIME: 18:55 Assessment/Plan Assessment/Plan Chief Complaint/Hosp Course IMp: 1.SVT-? A tach/avnrt/atypical AFL 2.HTN-uncontrolled 3.ARF 4.-mild to mod 5.hypothyroid 6.UTI Recc: -Tele -follow for recurrent SVT and will consider slight further increase to BB -Continue newly started procardia and if BP continues to be uncontrolled would increase dose of hydralazine -Continue abx's and f/u cx data Problems: Consultation Date/Type/Reason Admit Date/Time Sep 21, 2016 at 20:29 Initial Consult Date 09/27/2015 Type of Consultation: Cardiology Reason for Consultation SVT Referring Provider: HILL SAEZ Exam/Review of Systems Vital Signs Vitals Vital Signs Date Time Temp Pulse Resp B/P Pulse Ox O2 Delivery O2 Flow Rate FiO2 09/27/16 16:41 72 09/27/16 15:24 97.9 155/63 96 09/27/16 11:04 16 09/25/16 02:42 Room Air Intake and Output 09/26/16 09/26/16 09/27/16 15:00 23:00 07:00 Intake Total 150 ml Balance 150 ml Exam Review of Systems: CONSTITUTIONAL: No fevers, chills. PULMONARY: No sob CARDIOVASCULAR: No chest pain/palpitations GASTROINTESTINAL: No nausea/vomiting. GENITOURINARY: No hematuria/dysuria. MUSCULOSKELETAL: No myagias/arthalgias. PSYCHIATRIC: The patient denies depression. NEUROLOGIC: No weakness Constitutional: alert Psych: no complaints Head: normocephalic ENMT: mucosa pink and moist Neck: jvd (9 cm water), supple Respiratory: diminished breath sounds Cardiovascular: regular rate and rhythm Gastrointestinal: non-tender, soft Musculoskeletal: muscle tone (normal) Extremities: edema (none) Neurological: other (No focal deficits) Results Result Diagram: 09/25/16 0620 Medications Medications Current Medications Lorazepam (Ativan) 0.5 mg Q6H PRN IV ANXIETY; Start 09/21/16 at 23:30 Ondansetron HCl (Zofran Inj) 4 mg Q6H PRN IV NAUSEA AND/OR VOMITING; Start at 23:30 Aspirin (Aspirin) 81 mg DAILY PO Last administered on 09/27/16 08:00; Admin Dose 81 MG; Start 09/22/16 at 09:00 Nitroglycerin (Nitroglycerin (Sl Tab) 0.4 Mg) 1 tab Q5M PRN SL CHEST PAIN; Start 09/21/16 at 23:30 Acetaminophen (Tylenol Tab) 650 mg Q6H PRN PO PAIN LEVEL 1-3 OR FEVER Last administered on 09/23/16 19:52; Admin Dose 650 MG; Start 09/21/16 at 23:30 Morphine Sulfate (morphine) 2 mg Q4H PRN IV PAIN LEVEL 7-10 Last administered on 09/26/16 03:29; Admin Dose 2 MG; Start 09/21/16 at 23:30 Isosorbide Mononitrate (Imdur) 30 mg DAILY PO Last administered on 09/27/16 08: 01; Admin Dose 30 MG; Start 09/22/16 at 09:00 Pantoprazole (Protonix Tab) 40 mg DAILY@06 PO Last administered on 09/27/16 06: 37; Admin Dose 40 MG; Start 09/22/16 at 06:00 Hydralazine HCl (Apresoline) 10 mg Q4H PRN IV ELEVATED BLOOD PRESSURE Last administered on 09/26/16 03:27; Admin Dose 10 MG; Start 09/23/16 at 22:00 Lisinopril (Zestril) 10 mg BID PO Last administered on 09/27/16 08:01; Admin Dose 10 MG; Start 09/25/16 at 21:00 Metoprolol Tartrate (Lopressor) 75 mg BID PO Last administered on 09/27/16 08: 09; Admin Dose 75 MG; Start 09/26/16 at 21:00 Cyclobenzaprine HCl (Flexeril) 5 mg TID PO Last administered on 09/27/16 12:11 ; Admin Dose 5 MG; Start 09/26/16 at 21:00; Stop 09/27/16 at 20:59 Nifedipine 30 mg 30 mg DAILY PO ; Start 09/28/16 at 09:00 Ceftriaxone Sodium (Rocephin) 50 ml @ 100 mls/hr Q24H IVPB Last administered on 09/27/16 18:26; Admin Dose 100 MLS/HR; Start 09/27/16 at 18:00 NAVEEN GONZALES September 27, 2016 19:00
[2016-09-28] VITALS (15 sets, daily range): BP systolic 120–190; BP diastolic 59–81; PULSE 56–70; RESP 16–18
[2016-09-28] MEDS: morphine 2 MG INJ IV PRN (01:29)
[2016-09-28] MEDS: LEVOTHYROXINE 50 MCG TAB PO SCH (05:46)
[2016-09-28] MEDS: PANTOPRAZOLE (EC) 40 MG TAB PO SCH (05:46)
[2016-09-28] MEDS: ASPIRIN 81 MG TAB PO SCH (08:02)
[2016-09-28] MEDS: ISOSORBIDE MONONITRATE(SR)30 MG TAB PO SCH (08:03)
[2016-09-28] MEDS: METOPROLOL 50 MG TAB PO SCH ×2 (08:03→19:40)
[2016-09-28] MEDS: LISINOPRIL 10 MG TAB PO SCH ×2 (08:03→19:40)
[2016-09-28] MEDS: NIFEdipine (XL) 30 MG TAB PO SCH (08:07)
[2016-09-28 08:08] LABS: ADD SCAN DIFF NO
[2016-09-28 08:11] LABS: BASOPHIL # 0.1 10^3/ul (0.0-0.1); BASOPHILS % 1.6 % (0.0-2.0); EOSINOPHILS # 0.7 10^3/ul (0.0-0.5); EOSINOPHILS % 8.3 % (0.0-7.0); HEMATOCRIT 34.2 % (37.0-47.0); HEMOGLOBIN 11.7 g/dl (12.0-16.0); LYMPHOCYTES # 1.2 10^3/ul (0.8-2.9); MEAN CORPUSCULAR HEMOGLOBIN 28.2 pg (29.0-33.0); MEAN CORPUSCULAR HGB CONC 34.2 g/dl (32.0-37.0); MEAN CORPUSCULAR VOLUME 82.4 fl (82.0-101.0); MEAN PLATELET VOLUME 9.9 fl (7.4-10.4); MONOCYTE # 0.9 10^3/ul (0.3-0.9); MONOCYTES % 10.9 % (0.0-11.0); NEUTROPHIL # 5.1 10^3/ul (1.6-7.5); NEUTROPHILS % 63.8 % (39.0-77.0); PLATELET COUNT 400 10^3/UL (140-415); RED BLOOD COUNT 4.15 10^6/ul (4.20-5.40); RED CELL DISTRIBUTION WIDTH 14.3 % (11.5-14.5); WHITE BLOOD COUNT 8.1 10^3/ul (4.8-10.8)
[2016-09-28 08:52] LABS: CALCIUM 8.9 mg/dl (8.4-10.2); CREATININE 1.24 mg/dl (0.44-1.00)
[2016-09-28] MEDS ORDERED: NIFEdipine (XL) 60 MG TAB PO SCH ×2 (09:00)
--- NOTE | 2016-09-28 09:31 | PN ---
Date/Time of Note Date/Time of Note DATE: 09/28/16 TIME: 09:30 Assessment/Plan VTE Prophylaxis VTE Prophylaxis Intervention: SCD's Lines/Catheters IV C[facility]ter Type (from [facility]): Saline Lock Urinary Cath still in place: No Assessment/Plan Assessment/Plan This is an 89-year-old female with: 1. Acute kidney injury on chronic kidney disease: improved 2. Hypertension : improved control 5. hypothyroidism. 6. Non sustained SVTs 7. Cervical Msc spasm: improved 8. UTI 9. Prev CVA PLAN: * Increase Hydralazine dosage mildly * Cont abx * supportive care * PT eval and recs noted, discuss with family and case mgt: placement pending Subjective 24 Hr Interval Summary Free Text/Dictation Patient seen and examined. Nursing reports no acute overnight events. doing well, neck pain improved, no further headache. Ambulant around the room by holding on to the collado and bed Exam/Review of Systems Vital Signs Vitals Vital Signs Date Time Temp Pulse Resp B/P Pulse Ox O2 Delivery O2 Flow Rate FiO2 09/28/16 08:32 64 09/28/16 07:36 98.1 16 166/70 97 09/28/16 04:27 21 09/25/16 02:42 Room Air Intake and Output 09/27/16 09/27/16 09/28/16 15:00 23:00 07:00 Intake Total 600 ml 400 ml Balance 600 ml 400 ml Exam GENERAL: Elderly frail Awake, alert, in no distress. HEENT: Normal. Oropharynx clear. NECK: Supple, no JVD, no lymphadenopathy. LUNGS: Clear to auscultation. No crackles, no wheezes. HEART: S1, S2, with regular rhythm, no murmur. ABDOMEN: Soft, nontender, nondistended. Bowel sounds are present. EXTREMITIES: No clubbing, cyanosis, or edema. NEUROLOGICAL: Nonfocal, intact. PSYCHIATRIC: Appropriate affect and mood. Results Result Diagram: 09/28/16 0700 09/28/16 0700 Results 24 hrs Laboratory Tests Test 09/28/16 07:00 White Blood Count 8.1 # Red Blood Count 4.15 L Hemoglobin 11.7 L Hematocrit 34.2 L Mean Corpuscular Volume 82.4 Mean Corpuscular Hemoglobin 28.2 L Mean Corpuscular Hemoglobin Concent 34.2 Red Cell Distribution Width 14.3 Platelet Count 400 Mean Platelet Volume 9.9 Neutrophils % 63.8 Lymphocytes % 15.0 Monocytes % 10.9 Eosinophils % 8.3 H Basophils % 1.6 Nucleated Red Blood Cells % 0.0 Neutrophils # 5.1 Lymphocytes # 1.2 Monocytes # 0.9 Eosinophils # 0.7 H Basophils # 0.1 Nucleated Red Blood Cells # 0.0 Sodium Level 135 Potassium Level 4.0 Chloride Level 104 Carbon Dioxide Level 26 Anion Gap 9 Blood Urea Nitrogen 34 H Creatinine 1.24 H Glucose Level 85 Calcium Level 8.9 Medications Medications Current Medications Lorazepam (Ativan) 0.5 mg Q6H PRN IV ANXIETY; Start 09/21/16 at 23:30 Ondansetron HCl (Zofran Inj) 4 mg Q6H PRN IV NAUSEA AND/OR VOMITING; Start at 23:30 Aspirin (Aspirin) 81 mg DAILY PO Last administered on 09/28/16 08:02; Admin Dose 81 MG; Start 09/22/16 at 09:00 Nitroglycerin (Nitroglycerin (Sl Tab) 0.4 Mg) 1 tab Q5M PRN SL CHEST PAIN; Start 09/21/16 at 23:30 Acetaminophen (Tylenol Tab) 650 mg Q6H PRN PO PAIN LEVEL 1-3 OR FEVER Last administered on 09/23/16 19:52; Admin Dose 650 MG; Start 09/21/16 at 23:30 Morphine Sulfate (morphine) 2 mg Q4H PRN IV PAIN LEVEL 7-10 Last administered on 09/28/16 01:29; Admin Dose 2 MG; Start 09/21/16 at 23:30 Isosorbide Mononitrate (Imdur) 30 mg DAILY PO Last administered on 09/28/16 08: 03; Admin Dose 30 MG; Start 09/22/16 at 09:00 Pantoprazole (Protonix Tab) 40 mg DAILY@06 PO Last administered on 09/28/16 05: 46; Admin Dose 40 MG; Start 09/22/16 at 06:00 Hydralazine HCl (Apresoline) 10 mg Q4H PRN IV ELEVATED BLOOD PRESSURE Last administered on 09/26/16 03:27; Admin Dose 10 MG; Start 09/23/16 at 22:00 Lisinopril (Zestril) 10 mg BID PO Last administered on 09/28/16 08:03; Admin Dose 10 MG; Start 09/25/16 at 21:00 Metoprolol Tartrate (Lopressor) 75 mg BID PO Last administered on 09/28/16 08: 03; Admin Dose 75 MG; Start 09/26/16 at 21:00 Nifedipine 30 mg 30 mg DAILY PO Last administered on 09/28/16 08:07; Admin Dose 30 MG; Start 09/28/16 at 09:00 Ceftriaxone Sodium (Rocephin) 50 ml @ 100 mls/hr Q24H IVPB Last administered on 09/27/16 18:26; Admin Dose 100 MLS/HR; Start 09/27/16 at 18:00 HILL SAEZ September 28, 2016 09:31
--- NOTE | 2016-09-28 13:25 | CONS ---
Date/Time of Note Date/Time of Note DATE: 09/28/16 TIME: 13:23 Assessment/Plan Assessment/Plan Chief Complaint/Hosp Course IMp: 1.SVT-? A tach/avnrt/atypical AFL-no recurrence last 24 on current BB dose 2.HTN-uncontrolled 3.ARF 4.-mild to mod 5.hypothyroid 6.UTI Recc: -Tele -follow for recurrent SVT and will consider slight further increase to BB -Continue procardia/hydralazine and BB with now improved BP control -Continue abx's and f/u cx data Problems: Consultation Date/Type/Reason Admit Date/Time Sep 21, 2016 at 20:29 Initial Consult Date 09/27/2015 Type of Consultation: Cardiology Reason for Consultation SVT Referring Provider: HILL SAEZ Exam/Review of Systems Vital Signs Vitals Vital Signs Date Time Temp Pulse Resp B/P Pulse Ox O2 Delivery O2 Flow Rate FiO2 09/28/16 12:16 56 09/28/16 11:09 97.8 16 120/59 97 09/28/16 04:27 21 09/25/16 02:42 Room Air Intake and Output 09/27/16 09/27/16 09/28/16 15:00 23:00 07:00 Intake Total 600 ml 400 ml Balance 600 ml 400 ml Exam Review of Systems: CONSTITUTIONAL: No fevers, chills. PULMONARY: No sob CARDIOVASCULAR: No chest pain/palpitations GASTROINTESTINAL: No nausea/vomiting. GENITOURINARY: No hematuria/dysuria. MUSCULOSKELETAL: No myagias/arthalgias. PSYCHIATRIC: The patient denies depression. NEUROLOGIC: No weakness Constitutional: alert Psych: no complaints Head: normocephalic ENMT: mucosa pink and moist Neck: jvd (9 cm water), supple Respiratory: diminished breath sounds (at bases/B) Cardiovascular: regular rate and rhythm Gastrointestinal: non-tender, soft Musculoskeletal: muscle tone (normal) Extremities: edema (none) Neurological: other (No focal deficits) Results Result Diagram: 09/28/16 0700 09/28/16 0700 Results 24 hrs Laboratory Tests Test 09/28/16 07:00 White Blood Count 8.1 # Red Blood Count 4.15 L Hemoglobin 11.7 L Hematocrit 34.2 L Mean Corpuscular Volume 82.4 Mean Corpuscular Hemoglobin 28.2 L Mean Corpuscular Hemoglobin Concent 34.2 Red Cell Distribution Width 14.3 Platelet Count 400 Mean Platelet Volume 9.9 Neutrophils % 63.8 Lymphocytes % 15.0 Monocytes % 10.9 Eosinophils % 8.3 H Basophils % 1.6 Nucleated Red Blood Cells % 0.0 Neutrophils # 5.1 Lymphocytes # 1.2 Monocytes # 0.9 Eosinophils # 0.7 H Basophils # 0.1 Nucleated Red Blood Cells # 0.0 Sodium Level 135 Potassium Level 4.0 Chloride Level 104 Carbon Dioxide Level 26 Anion Gap 9 Blood Urea Nitrogen 34 H Creatinine 1.24 H Glucose Level 85 Calcium Level 8.9 Medications Medications Current Medications Lorazepam (Ativan) 0.5 mg Q6H PRN IV ANXIETY; Start 09/21/16 at 23:30 Ondansetron HCl (Zofran Inj) 4 mg Q6H PRN IV NAUSEA AND/OR VOMITING; Start at 23:30 Aspirin (Aspirin) 81 mg DAILY PO Last administered on 09/28/16 08:02; Admin Dose 81 MG; Start 09/22/16 at 09:00 Nitroglycerin (Nitroglycerin (Sl Tab) 0.4 Mg) 1 tab Q5M PRN SL CHEST PAIN; Start 09/21/16 at 23:30 Acetaminophen (Tylenol Tab) 650 mg Q6H PRN PO PAIN LEVEL 1-3 OR FEVER Last administered on 09/23/16 19:52; Admin Dose 650 MG; Start 09/21/16 at 23:30 Morphine Sulfate (morphine) 2 mg Q4H PRN IV PAIN LEVEL 7-10 Last administered on 09/28/16 01:29; Admin Dose 2 MG; Start 09/21/16 at 23:30 Isosorbide Mononitrate (Imdur) 30 mg DAILY PO Last administered on 09/28/16 08: 03; Admin Dose 30 MG; Start 09/22/16 at 09:00 Pantoprazole (Protonix Tab) 40 mg DAILY@06 PO Last administered on 09/28/16 05: 46; Admin Dose 40 MG; Start 09/22/16 at 06:00 Hydralazine HCl (Apresoline) 10 mg Q4H PRN IV ELEVATED BLOOD PRESSURE Last administered on 09/26/16 03:27; Admin Dose 10 MG; Start 09/23/16 at 22:00 Lisinopril (Zestril) 10 mg BID PO Last administered on 09/28/16 08:03; Admin Dose 10 MG; Start 09/25/16 at 21:00 Metoprolol Tartrate (Lopressor) 75 mg BID PO Last administered on 09/28/16 08: 03; Admin Dose 75 MG; Start 09/26/16 at 21:00 Nifedipine 30 mg 30 mg DAILY PO Last administered on 09/28/16 08:07; Admin Dose 30 MG; Start 09/28/16 at 09:00 Ceftriaxone Sodium (Rocephin) 50 ml @ 100 mls/hr Q24H IVPB Last administered on 09/27/16 18:26; Admin Dose 100 MLS/HR; Start 09/27/16 at 18:00 NAVEEN GONZALES September 28, 2016 13:25
[2016-09-28] MEDS ORDERED: LISI10TA2 PO (17:03)
[2016-09-28] MEDS ORDERED: NIFE30TA2 PO (17:03)
[2016-09-28] MEDS ORDERED: METO-429 PO (17:03)
[2016-09-28] MEDS ORDERED: HYDR-3672 PO (17:03)
[2016-09-28] MEDS ORDERED: HYDR-3671 PO (17:03)
[2016-09-28] MEDS ORDERED: NIT4 SL (17:03)
[2016-09-28] MEDS ORDERED: IPRA3AMP HHN (17:03)
[2016-09-28] MEDS ORDERED: AMOX1TAB10 PO (17:05)
[2016-09-28] MEDS ORDERED: CYCL5TAB PO (17:07)
[2016-09-28] MEDS: CEFTRIAXONE 1 GM/50 ML (PMX) 50 ML IVPB SCH (17:15)
--- NOTE | 2016-09-28 17:15 | DS ---
Date/Time of Note Date/Time of Note DATE: 09/28/16 TIME: 17:06 Discharge Summary Admission/Discharge Info Admit Date/Time Sep 21, 2016 at 20:29 Discharge Date/Time 09/28/16 Final Diagnosis This is an 89-year-old female with: 1. Acute kidney injury on chronic kidney disease: improved 2. Hypertension : improved control 5. hypothyroidism. 6. Non sustained SVTs 7. Cervical Msc spasm: improved 8. UTI 9. Prev CVA . Patient Condition: Stable Consults * Danish White : Cardiology * Melanie Quintanilla: Nephrology Procedures Echocardiogram Report Conclusions 1. Normal left ventricular systolic function. Normal left ventricular cavity size. Moderate concentric left ventricular hypertrophy. Ejection fraction is visually estimated at 65 %. Tissue Doppler/Mitral Doppler indices are consistent with impaired relaxation (Stage I diastolic dysfunction). 2. Aortic valve Max velocity 2.28 m/sec. Max PG 20.80 mmHg. Mean PG 8.00 mmHg. Aortic valve area 1.70 cm2. Aortic sclerosis without stenosis. Mild to moderate aortic valve regurgitation. 3. Mitral valve leaflets appear mildly thickened. Mild mitral annular calcification. Trace mitral regurgitation. 4. Normal appearance of the tricuspid valve. Estimated peak PA systolic pressure 30 mmHg. There is mild tricuspid regurgitation. Electronically Signed By: Robe Goldman 26-Sep-2016 14:37:01 -0700 PROCEDURE: CT cervical spine without contrast. IMPRESSION: 1. Reversal of the normal cervical lordosis may be from positioning but cannot exclude muscle spasm. 2. Asymmetric degenerative narrowing at the C 1-2 on the left side. 3. Degenerative disk narrowing greatest at C4-5, C5-6 and C6-7 with osteophyte and disk complex is contributing to at most mild C5-6 foraminal stenosis. 4. Significant right-sided facet arthropathy at C2-3 and C3-4 with left-sided facet arthropathy most pronounced at C4-5. 5. Mild right foraminal stenosis from uncovertebral hypertrophy and facet degeneration is present and C3-4, C4-5, C5-6 and C6-7. 6. Foraminal stenosis is greatest on the left at the C4-5 and C6-7. 7. Degenerative anterolisthesis at C3-4, C4-5 and C7-T1. 8. Generalized demineralization unable to exclude osteoporosis. 9. Atherosclerotic calcification of the aorta and carotid bifurcations. iT Krishna Physician Date Time Electronically viewed and signed by Ti Krishna Physician on 09/22/2016 16:56 PROCEDURE: CT Head without contrast. IMPRESSION: 1. No acute intracranial pathology. 2. Mild diffuse volume loss and mild chronic microvascular ischemic changes. 3. 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 RPTAT: HPNM Gurmeet Gonzalez Physician Date Time Electronically viewed and signed by Gurmeet Gonzalez Physician on 09/22/2016 16 :48 PROCEDURE: Retroperitoneal US. IMPRESSION: Small kidneys with no evidence of hydronephrosis. .Hiram Acosta MD, Date Time Electronically viewed and signed by .Hiram Acosta MD, MD on 09/25/2016 14: 34 Hx of Present Illness This is an 89 yo female with hx of HTN, hypothyroidism and CKD who initially presented to outside hospital c/o headache. She was transferred to [facility] because of insurance reasons. Pain is localized in occipital area. denied neck stiffness , fever, blurry vision, N/V, chest pain or SOB. Blood pressure at outside hospital was > 200/100. I spoke to her through a nurse airplane mechanic apprentice and pt said her BP at home is usually in 200 range. She said she takes "2 medications". . Hospital Course The patient was admitted, and she was ruled out for an acute coronary syndrome. She also got a 2D echocardiogram. She had a prolonged hospitalization because her blood pressure was quite difficult to control. It took a few days but she was finally got on the right regimen and now she has very good control. In the anterior she had a cervical spine CT scan because of her neck pain and with clinical exam it was determined that her pain was due to cervical muscle spasm. She was started on Flexeril with excellent results. A urinalysis also showed a UTI, which likely explain her lethargy. She was started on intravenous antibiotics and she has responded very well. On athletic monitor she was noted to have a few episodes of tachycardia, but these were nonsustained. Cardiology reviewed and recommended beta-greg therapy. She was started on this and this episode stopped. Her electrolytes were also monitored and replaced while she was in the hospital. She was seen by physical therapy and assessed to be a fall risk and as such after discussion with the family, she is being discharged to a nursing home facility for a couple of weeks of rehab after which she will return home to her daughter. This has been reviewed with the patient and she is in agreement. I spoken with all consultants, I have spoken with the telehealth case manager, and I spoke with nursing. Overall time spent in discharge coordination has been more than 40 minutes. . Home Meds Active Scripts Amoxicillin/Potassium Clav (Amox-Clav 875-125 mg Tablet) 875-125 mg Tab, 1 TAB PO BID for 7 Days, #14 TAB Prov:HILL SAEZ M. 09/28/16 Nitroglycerin* (Nitrostat*) 0.4 Mg Tab.subl, 1 TAB SL Q5M Y for CHEST PAIN, #15 Prov:HILL SAEZ M. 09/28/16 Nifedipine (Procardia Xl) 30 Mg Tab.er.24, 30 MG PO DAILY for 30 Days, TAB Prov:HILL SAEZ M. 09/28/16 Metoprolol Tartrate* (Lopressor*) 50 Mg Tab, 75 MG PO BID for 30 Days, TAB Prov:SEJASONO M. 09/28/16 Lisinopril* (Lisinopril*) 10 Mg Tablet, 10 MG PO BID for 30 Days, TAB Prov:SEHILL M. 09/28/16 Hydralazine Hcl* (Apresoline*) 50 Mg Tab, 50 MG PO WITH LUNCH for 30 Days, TAB Prov:HILL SAEZ M. 09/28/16 Hydralazine Hcl* (Hydralazine Hcl*) 25 Mg Tab, 75 MG PO AC BREAKFAST DINNER for 30 Days, TAB Prov:HILL SAEZ M. 09/28/16 Ipratropium-Albuterol (Ipratropium-Albuterol) 0.5-3 Mg/3 Ml Ampul.neb, 3 ML HHN Q2H RESP THERAPY Y for SHORTNESS OF BREATH for 60 Days Prov:HILL SAEZ M. 09/28/16 Guaifenesin-Dextromethorphan* (Robitussin* DM) 100MG/10MG/5ML Syrup, 5 ML PO Q6H Y for COUGH for 7 Days, #30 ML Prov:LISANDRO STARKS DO 06/17/16 Reported Medications Pantoprazole* (Pantoprazole*) 40 Mg Tablet.dr, 40 MG PO DAILY, TAB 09/21/16 Levothyroxine Sodium* (Levothyroxine Sodium*) 50 Mcg Tablet, 50 MCG PO BEFORE BREAKFAST, #30 TAB 09/21/16 Aspirin* (Aspirin* Chew) 81 Mg Tab.chew, 81 MG PO DAILY, TAB.CHEW 09/21/16 Isosorbide Mononitrate* (Isosorbide Mononitrate*) 30 Mg Tab.er.24h, 30 MG PO DAILY, TAB 08/12/14 Discontinued Reported Medications Acetaminophen* (Acetaminophen*) 500 MG Extra Strength Tablet, 500 MG PO Q4H Y for PAIN AND OR ELEVATED TEMP, TAB 09/21/16 Diltiazem Hcl* (Tiazac) 240 Mg Capsule.sa, 240 MG PO BID, CAP 08/12/14 Labetalol Hcl* (Labetalol Hcl*) 300 Mg Tablet, 300 MG PO DAILY, TAB 08/12/14 Discontinued Scripts Azithromycin* (Zithromax*) 250 Mg Tablet, 250 MG PO DAILY for 4 Days, TAB Prov:LISANDRO STARKS DO 06/17/16 Pending Labs Laboratory Tests Test 09/28/16 07:00 White Blood Count 8.110^3/ul (4.8-10.8) Red Blood Count 4.1510^6/ul (4.20-5.40) Hemoglobin 11.7g/dl (12.0-16.0) Hematocrit 34.2% (37.0-47.0) Mean Corpuscular Volume 82.4fl (82.0-101.0) Mean Corpuscular Hemoglobin 28.2pg (29.0-33.0) Mean Corpuscular Hemoglobin Concent 34.2g/dl (32.0-37.0) Red Cell Distribution Width 14.3% (11.5-14.5) Platelet Count 83240^3/UL (140-415) Mean Platelet Volume 9.9fl (7.4-10.4) Neutrophils % 63.8% (39.0-77.0) Lymphocytes % 15.0% (15.0-51.0) Monocytes % 10.9% (0.0-11.0) Eosinophils % 8.3% (0.0-7.0) Basophils % 1.6% (0.0-2.0) Nucleated Red Blood Cells % 0.0/100WBC (0.0-0.0) Neutrophils # 5.110^3/ul (1.6-7.5) Lymphocytes # 1.210^3/ul (0.8-2.9) Monocytes # 0.910^3/ul (0.3-0.9) Eosinophils # 0.710^3/ul (0.0-0.5) Basophils # 0.110^3/ul (0.0-0.1) Nucleated Red Blood Cells # 0.010^3/ul (0.0-0.0) Sodium Level 135mmol/L (135-144) Potassium Level 4.0mmol/L (3.5-5.1) Chloride Level 104mmol/L (97-110) Carbon Dioxide Level 26mmol/L (21-31) Anion Gap 9 (8-16) Blood Urea Nitrogen 34mg/dl (7-20) Creatinine 1.24mg/dl (0.44-1.00) Glucose Level 85mg/dl (70-220) Calcium Level 8.9mg/dl (8.4-10.2) HILL SAEZ September 28, 2016 17:15
--- NOTE | 2016-09-28 18:27 | CONS ---
Date/Time of Note Date/Time of Note DATE: 09/28/16 TIME: 18:26 Assessment/Plan Assessment/Plan Additional Assessment/Plan 1. Acute kidney injury on chronic kidney disease stage II secondary to uncontrolled hypertension and prerenal azotemia. 2. 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 3. Hypertensive urgency/accelerated hypertension. 4. History of hypertension. 5. History of hypothyroidism. Plan: pt has a recurretn SVT- MTP incrased to 75 BID on Hydralazine, still BP high, started procardia XL 30mg po daily - now BP controlled Renal US c/w medical renal disease Cr around 1.63 will follow up Consultation Date/Type/Reason Admit Date/Time Sep 21, 2016 at 20:29 Initial Consult Date September Type of Consultation: NEPHROLOG y Referring Provider: HILL SAEZ 24 HR Interval Summary Free Text/Dictation BP now controlled, afebrile, no complaints Exam/Review of Systems Vital Signs Vitals Vital Signs Date Time Temp Pulse Resp B/P Pulse Ox O2 Delivery O2 Flow Rate FiO2 09/28/16 16:56 70 09/28/16 15:29 98.1 18 129/60 97 09/28/16 04:27 21 09/25/16 02:42 Room Air Intake and Output 09/27/16 09/27/16 09/28/16 15:00 23:00 07:00 Intake Total 600 ml 400 ml Balance 600 ml 400 ml Results Result Diagram: 09/28/16 0700 09/28/16 0700 Results 24 hrs Laboratory Tests Test 09/28/16 07:00 White Blood Count 8.1 # Red Blood Count 4.15 L Hemoglobin 11.7 L Hematocrit 34.2 L Mean Corpuscular Volume 82.4 Mean Corpuscular Hemoglobin 28.2 L Mean Corpuscular Hemoglobin Concent 34.2 Red Cell Distribution Width 14.3 Platelet Count 400 Mean Platelet Volume 9.9 Neutrophils % 63.8 Lymphocytes % 15.0 Monocytes % 10.9 Eosinophils % 8.3 H Basophils % 1.6 Nucleated Red Blood Cells % 0.0 Neutrophils # 5.1 Lymphocytes # 1.2 Monocytes # 0.9 Eosinophils # 0.7 H Basophils # 0.1 Nucleated Red Blood Cells # 0.0 Sodium Level 135 Potassium Level 4.0 Chloride Level 104 Carbon Dioxide Level 26 Anion Gap 9 Blood Urea Nitrogen 34 H Creatinine 1.24 H Glucose Level 85 Calcium Level 8.9 Medications Medications Current Medications Lorazepam (Ativan) 0.5 mg Q6H PRN IV ANXIETY; Start 09/21/16 at 23:30 Ondansetron HCl (Zofran Inj) 4 mg Q6H PRN IV NAUSEA AND/OR VOMITING; Start at 23:30 Aspirin (Aspirin) 81 mg DAILY PO Last administered on 09/28/16 08:02; Admin Dose 81 MG; Start 09/22/16 at 09:00 Nitroglycerin (Nitroglycerin (Sl Tab) 0.4 Mg) 1 tab Q5M PRN SL CHEST PAIN; Start 09/21/16 at 23:30 Acetaminophen (Tylenol Tab) 650 mg Q6H PRN PO PAIN LEVEL 1-3 OR FEVER Last administered on 09/23/16 19:52; Admin Dose 650 MG; Start 09/21/16 at 23:30 Morphine Sulfate (morphine) 2 mg Q4H PRN IV PAIN LEVEL 7-10 Last administered on 09/28/16 01:29; Admin Dose 2 MG; Start 09/21/16 at 23:30 Isosorbide Mononitrate (Imdur) 30 mg DAILY PO Last administered on 09/28/16 08: 03; Admin Dose 30 MG; Start 09/22/16 at 09:00 Pantoprazole (Protonix Tab) 40 mg DAILY@06 PO Last administered on 09/28/16 05: 46; Admin Dose 40 MG; Start 09/22/16 at 06:00 Hydralazine HCl (Apresoline) 10 mg Q4H PRN IV ELEVATED BLOOD PRESSURE Last administered on 09/26/16 03:27; Admin Dose 10 MG; Start 09/23/16 at 22:00 Lisinopril (Zestril) 10 mg BID PO Last administered on 09/28/16 08:03; Admin Dose 10 MG; Start 09/25/16 at 21:00 Metoprolol Tartrate (Lopressor) 75 mg BID PO Last administered on 09/28/16 08: 03; Admin Dose 75 MG; Start 09/26/16 at 21:00 Nifedipine 30 mg 30 mg DAILY PO Last administered on 09/28/16 08:07; Admin Dose 30 MG; Start 09/28/16 at 09:00 Ceftriaxone Sodium (Rocephin) 50 ml @ 100 mls/hr Q24H IVPB Last administered on 09/28/16t 17:15; Admin Dose 100 MLS/HR; Start 09/27/16 at 18:00 MARCO JEONG MD September 28, 2016 18:26
[2016-09-28] MEDS: hydrALAzine 20 MG INJ IV PRN (20:21)
[2016-09-28] MEDS ORDERED: LISINOPRIL 10 MG TAB PO ONE (23:00)
[2016-09-29] VITALS: PULSE 65
[2016-09-29 00:28] VITALS: BP 171/71; RESP 18
[2016-09-29] MEDS: hydrALAzine 20 MG INJ IV PRN (02:43)
[2016-09-29] MEDS: morphine 2 MG INJ IV PRN (02:44)
[2016-09-29 03:54] VITALS: BP 145/66; PULSE 67
[2016-09-29 04:10] VITALS: BP 146/65; RESP 18
[2016-09-29 04:50] VITALS: PULSE 68
[2016-09-29] MEDS: PANTOPRAZOLE (EC) 40 MG TAB PO SCH (05:15)
[2016-09-29] MEDS: LEVOTHYROXINE 50 MCG TAB PO SCH (05:15)
[2016-09-29 06:23] LABS: ADD SCAN DIFF NO
[2016-09-29 06:33] LABS: BASOPHIL # 0.1 10^3/ul (0.0-0.1); BASOPHILS % 1.3 % (0.0-2.0); EOSINOPHILS # 0.6 10^3/ul (0.0-0.5); EOSINOPHILS % 6.6 % (0.0-7.0); HEMATOCRIT 36.5 % (37.0-47.0); HEMOGLOBIN 12.4 g/dl (12.0-16.0); LYMPHOCYTES # 1.5 10^3/ul (0.8-2.9); LYMPHOCYTES % 17.6 % (15.0-51.0); MEAN CORPUSCULAR HEMOGLOBIN 27.9 pg (29.0-33.0); MEAN PLATELET VOLUME 9.7 fl (7.4-10.4); MONOCYTE # 0.9 10^3/ul (0.3-0.9); MONOCYTES % 10.4 % (0.0-11.0); NEUTROPHIL # 5.4 10^3/ul (1.6-7.5); NEUTROPHILS % 63.7 % (39.0-77.0); PLATELET COUNT 439 10^3/UL (140-415); RED BLOOD COUNT 4.45 10^6/ul (4.20-5.40); RED CELL DISTRIBUTION WIDTH 14.3 % (11.5-14.5); WHITE BLOOD COUNT 8.5 10^3/ul (4.8-10.8)
[2016-09-29 07:06] LABS: CREATININE 1.3 mg/dl (0.44-1.00); POTASSIUM 4.3 mmol/L (3.5-5.1)
[2016-09-29 07:39] VITALS: BP 156/70; RESP 18
[2016-09-29] MEDS: ISOSORBIDE MONONITRATE(SR)30 MG TAB PO SCH (08:08)
[2016-09-29] MEDS: NIFEdipine (XL) 30 MG TAB PO SCH (08:08)
[2016-09-29] MEDS: METOPROLOL 50 MG TAB PO SCH (08:09)
[2016-09-29] MEDS: ASPIRIN 81 MG TAB PO SCH (08:09)
[2016-09-29] MEDS ORDERED: LISINOPRIL 20 MG TAB PO SCH (09:00)
--- NOTE | 2016-09-29 14:32 | DS ---
Date/Time of Note Date/Time of Note DATE: 09/29/16 TIME: 14:29 Discharge Summary Admission/Discharge Info Admit Date/Time Sep 21, 2016 at 20:29 Discharge Date/Time September 29, 2016 at 08:48 Final Diagnosis This is an 89-year-old female with: 1. Acute kidney injury on chronic kidney disease: improved 2. Hypertension : improved control 5. hypothyroidism. 6. Non sustained SVTs 7. Cervical Msc spasm: improved 8. UTI 9. Prev CVA Patient Condition: Stable Hx of Present Illness This is an 89 yo female with hx of HTN, hypothyroidism and CKD who initially presented to outside hospital c/o headache. She was transferred to [facility] because of insurance reasons. Pain is localized in occipital area. denied neck stiffness , fever, blurry vision, N/V, chest pain or SOB. Blood pressure at outside hospital was > 200/100. I spoke to her through a nurse disbursing officer and pt said her BP at home is usually in 200 range. She said she takes "2 medications". . Hospital Course Discharge was held for elevated blood pressure. * Blood presure improved today * Physical exam benign * Patient remains stable for discharge to SNF Hospital course: The patient was admitted, and she was ruled out for an acute coronary syndrome. She also got a 2D echocardiogram. She had a prolonged hospitalization because her blood pressure was quite difficult to control. It took a few days but she was finally got on the right regimen and now she has very good control. In the anterior she had a cervical spine CT scan because of her neck pain and with clinical exam it was determined that her pain was due to cervical muscle spasm. She was started on Flexeril with excellent results. A urinalysis also showed a UTI, which likely explain her lethargy. She was started on intravenous antibiotics and she has responded very well. On monitoring manager she was noted to have a few episodes of tachycardia, but these were nonsustained. Cardiology reviewed and recommended beta-greg therapy. She was started on this and this episode stopped. Her electrolytes were also monitored and replaced while she was in the hospital. She was seen by physical therapy and assessed to be a fall risk and as such after discussion with the family, she is being discharged to a [facility] facility for a couple of weeks of rehab after which she will return home to her daughter. This has been reviewed with the patient and she is in agreement. I spoken with all consultants, I have spoken with the showcase maker, and I spoke with nursing. Overall time spent in discharge coordination has been more than 40 minutes. . Home Meds Active Scripts Cyclobenzaprine Hcl* (Cyclobenzaprine Hcl*) 5 Mg Tablet, 5 MG PO TID for 3 Days , TAB Prov:HILL SAEZ . 09/28/16 Amoxicillin/Potassium Clav (Amox-Clav 875-125 mg Tablet) 875-125 mg Tab, 1 TAB PO BID for 7 Days, #14 TAB [facility] 09/28/16 Nitroglycerin* (Nitrostat*) 0.4 Mg Tab.subl, 1 TAB SL Q5M Y for CHEST PAIN, #15 Prov[facility] 09/28/16 Nifedipine (Procardia Xl) 30 Mg Tab.er.24, 30 MG PO DAILY for 30 Days, TAB Prov:[facility] 09/28/16 Metoprolol Tartrate* (Lopressor*) 50 Mg Tab, 75 MG PO BID for 30 Days, TAB [facility] 09/28/16 Lisinopril* (Lisinopril*) 10 Mg Tablet, 10 MG PO BID for 30 Days, TAB [facility] 09/28/16 Hydralazine Hcl* (Apresoline*) 50 Mg Tab, 50 MG PO WITH LUNCH for 30 Days, TAB [facility] 09/28/16 Hydralazine Hcl* (Hydralazine Hcl*) 25 Mg Tab, 75 MG PO AC BREAKFAST DINNER for 30 Days, TAB Prov:JASON SAEZOlya 09/28/16 Ipratropium-Albuterol (Ipratropium-Albuterol) 0.5-3 Mg/3 Ml Ampul.neb, 3 ML HHN Q2H RESP THERAPY Y for SHORTNESS OF BREATH for 60 Days Prov:JASON SAEZOlya 09/28/16 Guaifenesin-Dextromethorphan* (Robitussin* DM) 100MG/10MG/5ML Syrup, 5 ML PO Q6H Y for COUGH for 7 Days, #30 ML Prov:LISANDRO STARKS DO 06/17/16 Reported Medications Pantoprazole* (Pantoprazole*) 40 Mg Tablet.dr, 40 MG PO DAILY, TAB 09/21/16 Levothyroxine Sodium* (Levothyroxine Sodium*) 50 Mcg Tablet, 50 MCG PO BEFORE BREAKFAST, #30 TAB 09/21/16 Aspirin* (Aspirin* Chew) 81 Mg Tab.chew, 81 MG PO DAILY, TAB.CHEW 09/21/16 Isosorbide Mononitrate* (Isosorbide Mononitrate*) 30 Mg Tab.er.24h, 30 MG PO DAILY, TAB 08/12/14 Discontinued Reported Medications Acetaminophen* (Acetaminophen*) 500 MG Extra Strength Tablet, 500 MG PO Q4H Y for PAIN AND OR ELEVATED TEMP, TAB 09/21/16 Diltiazem Hcl* (Tiazac) 240 Mg Capsule.sa, 240 MG PO BID, CAP 08/12/14 Labetalol Hcl* (Labetalol Hcl*) 300 Mg Tablet, 300 MG PO DAILY, TAB 08/12/14 Discontinued Scripts Azithromycin* (Zithromax*) 250 Mg Tablet, 250 MG PO DAILY for 4 Days, TAB Prov:JESENIA STARKSTYE RAZO 06/17/16 Pending Labs Laboratory Tests Test 09/29/16 05:04 09/29/16 05:37 White Blood Count 8.510^3/ul (4.8-10.8) Red Blood Count 4.4510^6/ul (4.20-5.40) Hemoglobin 12.4g/dl (12.0-16.0) Hematocrit 36.5% (37.0-47.0) Mean Corpuscular Volume 82.0fl (82.0-101.0) Mean Corpuscular Hemoglobin 27.9pg (29.0-33.0) Mean Corpuscular Hemoglobin Concent 34.0g/dl (32.0-37.0) Red Cell Distribution Width 14.3% (11.5-14.5) Platelet Count 02727^3/UL (140-415) Mean Platelet Volume 9.7fl (7.4-10.4) Neutrophils % 63.7% (39.0-77.0) Lymphocytes % 17.6% (15.0-51.0) Monocytes % 10.4% (0.0-11.0) Eosinophils % 6.6% (0.0-7.0) Basophils % 1.3% (0.0-2.0) Nucleated Red Blood Cells % 0.0/100WBC (0.0-0.0) Neutrophils # 5.410^3/ul (1.6-7.5) Lymphocytes # 1.510^3/ul (0.8-2.9) Monocytes # 0.910^3/ul (0.3-0.9) Eosinophils # 0.610^3/ul (0.0-0.5) Basophils # 0.110^3/ul (0.0-0.1) Nucleated Red Blood Cells # 0.010^3/ul (0.0-0.0) Sodium Level 135mmol/L (135-144) Potassium Level 4.3mmol/L (3.5-5.1) Chloride Level 103mmol/L (97-110) Carbon Dioxide Level 25mmol/L (21-31) Anion Gap 11 (8-16) Blood Urea Nitrogen 39mg/dl (7-20) Creatinine 1.30mg/dl (0.44-1.00) Glucose Level 98mg/dl (70-220) Calcium Level 9.0mg/dl (8.4-10.2) HILL SAEZ September 29, 2016 14:31
== END 2016-09-29 08:48 | DRG 683 ==
LOC: TEL 20:29
PROVIDERS: ADMIT Internal Medicine; ATTEND Internal Medicine
DX: N17.9 Acute kidney failure, unspecified (principal); I47.1 Supraventricular tachycardia; N39.0 Urinary tract infection, site not specified; I16.0 Hypertensive urgency; I12.9 Hypertensive chronic kidney disease with stage 1 through stage 4 chronic kidney disease, or unspecified chronic kidney disease; N18.2 Chronic kidney disease, stage 2 (mild); I25.10 Atherosclerotic heart disease of native coronary artery without angina pectoris; I70.0 Atherosclerosis of aorta; I49.1 Atrial premature depolarization; E03.9 Hypothyroidism, unspecified; E78.5 Hyperlipidemia, unspecified; M46.92 Unspecified inflammatory spondylopathy, cervical region; M62.838 Other muscle spasm; R51 Headache; R07.9 Chest pain, unspecified; Z86.73 Personal history of transient ischemic attack (TIA), and cerebral infarction without residual deficits
CPT/HCPCS: 70450; 72125; 76775; 80048; 80053; 80061; 81001; 81003; 83735; 84100; 84443; 85025; 86803; 87086; 93306; 97116; 97163; 97530; J0360; J0696; J1885; J2270; J7120